=== PATIENT | female | born 1945 | race Caucasian/White ===

== ENCOUNTER 2017-01-04 12:54 | Inpatient (IN) | payer MEDICARE, OTHER ==
[2017-01-04] MEDS: Acetaminophen 325 MG Tab PO PRN (17:51)
[2017-01-04] MEDS ORDERED: Albuterol/Ipratropium 3.0-0.5 MG/3 ML Neb Soln NEB PRN (17:58)
[2017-01-04] MEDS ORDERED: Acetaminophen 325 MG Tab PO PRN (17:58)
[2017-01-04] MEDS ORDERED: Sodium Chloride 0.9% 5 ML Syringe FLUSH PRN (18:00)
[2017-01-04] MEDS: Omeprazole 20 MG Cap.CR PO SCH (19:55)
[2017-01-04] MEDS: Docusate Sodium 100 MG Cap PO SCH (20:05)
[2017-01-04] MEDS: Lactulose Soln 10 GM/15 ML 30 ML UD Cup PO SCH (20:05)
[2017-01-04] MEDS: Budesonide 0.5 MG/2 ML Neb Susp INH SCH (20:05)
[2017-01-04] MEDS: Ciprofloxacin 500 MG Tab PO SCH (20:06)
[2017-01-04] MEDS ORDERED: traMADol 50 MG Tab PO PRN (20:19)
[2017-01-04] MEDS: Albuterol/Ipratropium 3.0-0.5 MG/3 ML Neb Soln NEB SCH (21:22)
[2017-01-05] MEDS: Albuterol/Ipratropium 3.0-0.5 MG/3 ML Neb Soln NEB SCH ×4 (05:55→20:02)
[2017-01-05] MEDS: Metoclopramide 10 MG Tab PO PRN ×2 (06:21→11:59)
[2017-01-05] MEDS: Omeprazole 20 MG Cap.CR PO SCH ×2 (06:22→16:24)
[2017-01-05] MEDS: Budesonide 0.5 MG/2 ML Neb Susp INH SCH ×2 (07:30→19:51)
[2017-01-05] MEDS: Aspirin 81 MG Tab.EC PO SCH (08:13)
[2017-01-05] MEDS: Ferrous Sulfate 325 MG Tab PO SCH (08:13)
[2017-01-05] MEDS: Lactulose Soln 10 GM/15 ML 30 ML UD Cup PO SCH ×2 (08:13→20:16)
[2017-01-05] MEDS: Cholecalciferol (Vitamin D3) 1,000 Unit Tab PO SCH (08:14)
[2017-01-05] MEDS: Docusate Sodium 100 MG Cap PO SCH ×2 (08:14→20:17)
[2017-01-05] MEDS: Ciprofloxacin 500 MG Tab PO SCH ×2 (08:14→20:17)
[2017-01-05] MEDS: Furosemide 40 MG Tab PO SCH (08:14)
[2017-01-05] MEDS: Acetaminophen 325 MG Tab PO PRN ×2 (08:37→16:22)
[2017-01-05] MEDS: Amiodarone 200 MG Tab PO SCH (08:38)
[2017-01-05] MEDS: Potassium Chloride 20 MEQ Tab.ER PO SCH ×2 (08:38→08:55)
--- NOTE | 2017-01-05 17:12 | PN ---
01/05/2017 PATIENT NAME: LIZABETH RAMIREZ PATIENT PROFILE: The patient is a 71-year-old female patient, who is back to this hospital after almost an eight weeks stay at [facility]. She has developed initially influenza A followed by bilateral bacterial pneumonias. She had went into ARDS. She required tracheostomy and respiratory management for almost four weeks. She has come back to this hospital in very good condition. She is alert and well oriented to space, time, and person. She does have a gastrostomy tube in place. The tracheostomy is almost completely healed. She still has a loose cough. She has weakness of both lower extremities probably due to demyelination. OBJECTIVE: VITAL SIGNS: Her vital signs are as follows. Pulse is 76, oxygen saturations 91%, blood pressure is 128/60. Intake/output is good. HEAD: Negative. HEART: Stable. LUNGS: Stable. ABDOMEN: Soft. Gastrostomy tube is present. EXTREMITIES: Weak bilaterally. IMPRESSION: 1. History of influenza followed by bilateral bacterial pneumonitis. 2. Acute respiratory distress syndrome requiring placement of tracheostomy and prolonged respiratory management for approximately 4 to 6 weeks at [facility]. Currently, the patient is doing well as can be seen from above. PLAN: Plan is to continue current management. We will start her on gastrostomy tube feedings through the night from 6 p.m. to 8 a.m. She will get about 63 mL/h, 63 mL of Jevity 1.2. We will flush with 100 mL. She is also eating slowly. She has been getting trazodone and we will start her back on it at 50 mg at bedtime. /[id number]/MODL
[2017-01-05] MEDS: traZODone 50 MG Tab PO SCH (20:17)
[2017-01-06] MEDS: Albuterol/Ipratropium 3.0-0.5 MG/3 ML Neb Soln NEB SCH ×4 (06:22→20:04)
[2017-01-06] MEDS: Budesonide 0.5 MG/2 ML Neb Susp INH SCH ×2 (06:33→18:27)
[2017-01-06] MEDS: Omeprazole 20 MG Cap.CR PO SCH ×2 (06:34→17:30)
[2017-01-06] MEDS: Acetaminophen 325 MG Tab PO PRN (06:45)
[2017-01-06] MEDS: Metoclopramide 10 MG Tab PO PRN ×3 (08:19→21:24)
[2017-01-06] MEDS: Lactulose Soln 10 GM/15 ML 30 ML UD Cup PO SCH ×2 (08:29→20:17)
[2017-01-06] MEDS: Ferrous Sulfate 325 MG Tab PO SCH (08:30)
[2017-01-06] MEDS: Ciprofloxacin 500 MG Tab PO SCH ×2 (08:30→20:16)
[2017-01-06] MEDS: Docusate Sodium 100 MG Cap PO SCH ×2 (08:30→20:16)
[2017-01-06] MEDS: Furosemide 40 MG Tab PO SCH (08:31)
[2017-01-06] MEDS: Amiodarone 200 MG Tab PO SCH (08:31)
[2017-01-06] MEDS: Cholecalciferol (Vitamin D3) 1,000 Unit Tab PO SCH (08:31)
[2017-01-06] MEDS: Aspirin 81 MG Tab.EC PO SCH (08:31)
[2017-01-06] MEDS: Potassium Chloride 20 MEQ Tab.ER PO SCH (08:32)
--- NOTE | 2017-01-06 11:22 | PCM.PN ---
- General Info Date of Service: 01/06/17 Admission Dx/Problem (Free Text): Chief complaint: Weakness need for rehabilitation History of present illness: 71-year-old white female admitted to skilled care after a lengthy hospitalization in [place] for almost 8 weeks. Patient had initially developed influenza A. followed by bilateral bacterial pneumonias. Patient went into ARDS. Patient required tracheostomy, ventilation, respiratory management for almost 4 weeks. Patient presents now for swing bed skilled care admission for strength building, rehabilitation. Patient does have a chronic gastrostomy tube, tracheostomy is almost completely healed. Patient reported a loose cough on admission. Significant weakness of both lower extremities do to demyelination. Hospital discharge diagnosis: #1-Acute hypoxic respiratory failure due to empyema. #2-Acute on chronic diastolic heart failure #3-Atrial fibrillation #4-Anemia of chronic disease. Course while in the hospital: Acute hypoxic respiratory failure. Patient admitted to [facility] with influenza complicated by MRSA pneumonia, sepsis, right-sided empyema requiring intubation, mechanical ventilation-extended requiring even tracheostomy. PEG tube placement and enteral feedings Acute on chronic diastolic heart failure will-with some leg swelling, pulmonary edema-managed with Lasix Critical illness neuropathy and myopathy-aggressive PT and OT was done Constipation Component of urinary tract infection Urinary retention-thought probably from the decreased mobility Atrial fibrillation DVT prophylaxis Iron deficiency anemia Hypokalemia Nausea _ Patient reports today: Patient reports she still quite weak Decreased appetite Persistent recurrent nausea-especially associated with eating No major pain but some arthritis discomfort especially knees at times Shortness of breath much better overall Bladder doing fairly well-Gonzalez out Still getting tube feedings-tolerating fairly well Voiding well Bowel movement yesterday Nurses report today: Doing well overall Emesis after breakfast-nurses will try to give her Reglan earlier Crackles in her lung bases Some swelling in her lower extremities Needs SHLOMO hose PEG tube-tube feedings Functional Status: Reports: pain controlled, ambulating (With assistance-but can only take a few steps), urinating. Denies: tolerating diet (Fair diet control-a lot of nausea he yet) - Review of Systems General: Reports: Weakness, Fatigue, Malaise. Denies: Fever, Chills, Appetite ( Decreased) HEENT: Reports: no symptoms Pulmonary: Reports: shortness of breath (Much better overall), cough ( Occasional harsh). Denies: wheezing Cardiovascular: Reports: No Symptoms Gastrointestinal: Reports: No symptoms, Other (PEG tube) Genitourinary: Reports: no symptoms Musculoskeletal: Reports: joint pain (Knee pain at times) Neurological: Reports: No Symptoms, Weakness Psychiatric: Reports: no symptoms - Patient Data Vitals - most recent: Last Vital Signs Temp 97.9 F 01/06/17 06:36 Pulse 83 01/06/17 06:36 Resp 20 01/06/17 06:36 BP 140/66 01/06/17 06:36 Pulse Ox 97 01/06/17 06:36 Weight - most recent: 195 lb 7.989 oz I&O - last 24 hours: Intake & Output 01/05/17 01/06/17 01/06/17 22:59 06:59 14:59 Intake Total 250 910 Output Total 300 Balance -50 910 Med Orders - Current: Current Medications Acetaminophen (Tylenol) 650 mg PO Q4H PRN PRN Reason: Pain Last Admin: 01/06/17 06:45 Dose: 650 mg Albuterol/Ipratropium (Duoneb 3.0-0.5 Mg/3 Ml) 3 ml NEB Q4H PRN PRN Reason: Dyspnea Albuterol/Ipratropium (Duoneb 3.0-0.5 Mg/3 Ml) 3 ml NEB 0600,1100,1600,2000 [facility] Last Admin: 01/06/17 10:53 Dose: 3 ml Amiodarone HCl (Cordarone) 200 mg PO DAILY [facility] Last Admin: 01/06/17 08:31 Dose: 200 mg Aspirin (Halfprin) 81 mg PO DAILY [facility] Last Admin: 01/06/17 08:31 Dose: 81 mg Budesonide (Pulmicort) 0.5 mg INH BID@0700,1900 [facility] Last Admin: 01/06/17 06:33 Dose: 0.5 mg Cholecalciferol (Vitamin D3) 4,000 units PO DAILY [facility] Last Admin: 01/06/17 08:31 Dose: 4,000 units Ciprofloxacin (Ciprofloxacin Hcl) 500 mg PO BID [facility] Stop: 01/11/17 23:59 Last Admin: 01/06/17 08:30 Dose: 500 mg Docusate Sodium (Colace) 100 mg PO BID [facility] Last Admin: 01/06/17 08:30 Dose: 100 mg Ferrous Sulfate (Ferrous Sulfate) 325 mg PO WITHBREAKFAST [facility] Last Admin: 01/06/17 08:30 Dose: 325 mg Furosemide (Lasix) 40 mg PO DAILY [facility] Last Admin: 01/06/17 08:31 Dose: 40 mg Lactulose (Cephulac) 20 gm PO BID [facility] Last Admin: 01/06/17 08:29 Dose: Not Given Metoclopramide HCl (Reglan) 10 mg PO TID PRN PRN Reason: Nausea Last Admin: 01/06/17 08:19 Dose: 10 mg Omeprazole (Omeprazole) 20 mg PO BIDAC [facility] Last Admin: 01/06/17 06:34 Dose: 20 mg Potassium Chloride (Klor-Con M20) 20 meq PO DAILY [facility] Last Admin: 01/06/17 08:32 Dose: 20 meq Sodium Chloride (Syrex Flush) 5 ml FLUSH Q8HR PRN PRN Reason: Keep Vein Open Trazodone HCl (Trazodone) 50 mg PO BEDTIME [facility] Last Admin: 01/05/17 20:17 Dose: 50 mg Discontinued Medications Albuterol/Ipratropium (Duoneb 3.0-0.5 Mg/3 Ml) 3 ml NEB QIDRT [facility] Last Admin: 01/05/17 05:55 Dose: 3 ml Budesonide (Pulmicort) 0.5 mg INH BIDRT [facility] Last Admin: 01/05/17 07:30 Dose: 0.5 mg Tramadol HCl (Ultram) 100 mg PO DAILY PRN PRN Reason: Insomnia Last Admin: 01/04/17 21:21 Dose: 100 mg - Exam Quality Assessment: No: supplemental oxygen General: alert, oriented, cooperative, no acute distress, other (Sitting in chair, daughter present, alert and oriented x3, no acute respiratory cardiac distress, occasional deep harsh cough appreciated) HEENT: Pupils equal, Pupils reactive, EOMI, Mucous membr. moist/pink, Other ( Wears glasses). No: Scleral icterus Neck: supple, trachea midline, no JVD, no thyromegaly. No: lymphadenopathy Lungs: Decreased breath sounds, Crackles (Bases), Other (No O2 therapy on) Cardiovascular: Regular Rate, Regular Rhythm, No Murmurs Abdomen: bowel sounds present, soft, no tenderness, no distension, other (PEG tube-site looks good). No: rigidity, rebound, guarding, tenderness, distension Extremities: no calf tenderness, edema (1+/4+-patient reports it looks much better than previous) Skin: warm, dry, intact Neurological: no new focal deficit, other (Significant generalized weakness) Psy/Mental Status: alert, normal affect, normal mood - Problem List Review Problem List Initiated/Reviewed/Updated: Yes - Assessment Assessment:: #1-Generalized weakness and debilitation secondary to below-need for strength building and rehabilitation #2-Post acute hypoxic respiratory failure requiring extended mechanical ventilation-extubated and tracheostomy site healing nicely #3-Chronic hypoxia with secondary O2 therapy-doing much better-not requiring oxygen therapy at this time #4-Post severe pneumonia with empyema-still on Cipro-improving nicely #5-Recurrent yzxzyj-oowdntqcljvuyr-jcb optimal control yet #6-Chronic enteral feedings #7-Diastolic heart failure-clinically well controlled #0-Pluylkiybuip-ulhkgvrmyr #9-History of urinary tract infection #10-Atrial fibrillation history-clinically well controlled #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 #5-long discussion with patient and her daughter-they agree with this evaluation and treatment regimen
[2017-01-06] MEDS: traZODone 50 MG Tab PO SCH (20:16)
[2017-01-07] MEDS: Albuterol/Ipratropium 3.0-0.5 MG/3 ML Neb Soln NEB SCH ×4 (05:54→19:55)
[2017-01-07] MEDS: Budesonide 0.5 MG/2 ML Neb Susp INH SCH ×2 (06:05→18:57)
[2017-01-07] MEDS: Metoclopramide 10 MG Tab PO PRN ×2 (06:06→17:11)
[2017-01-07] MEDS: Acetaminophen 325 MG Tab PO PRN (06:06)
[2017-01-07] MEDS: Omeprazole 20 MG Cap.CR PO SCH ×2 (06:06→17:10)
[2017-01-07 07:41] LABS: CHLORIDE,CL 97 mmol/L (98-115); SODIUM,NA 135 mmol/L (136-145)
[2017-01-07] MEDS: Cholecalciferol (Vitamin D3) 1,000 Unit Tab PO SCH (08:57)
[2017-01-07] MEDS: Lactulose Soln 10 GM/15 ML 30 ML UD Cup PO SCH ×2 (08:57→20:08)
[2017-01-07] MEDS: Aspirin 81 MG Tab.EC PO SCH (08:58)
[2017-01-07] MEDS: Ciprofloxacin 500 MG Tab PO SCH ×2 (08:58→20:07)
[2017-01-07] MEDS: Docusate Sodium 100 MG Cap PO SCH ×2 (08:58→20:08)
[2017-01-07] MEDS: Furosemide 40 MG Tab PO SCH (08:58)
[2017-01-07] MEDS: Potassium Chloride 20 MEQ Tab.ER PO SCH (08:58)
[2017-01-07] MEDS: Amiodarone 200 MG Tab PO SCH (08:58)
[2017-01-07] MEDS: Ferrous Sulfate 325 MG Tab PO SCH (08:59)
[2017-01-07] MEDS: traZODone 50 MG Tab PO SCH (20:08)
[2017-01-08] MEDS: Albuterol/Ipratropium 3.0-0.5 MG/3 ML Neb Soln NEB SCH ×4 (06:05→20:14)
[2017-01-08] MEDS: Omeprazole 20 MG Cap.CR PO SCH ×2 (06:13→16:38)
[2017-01-08] MEDS: Acetaminophen 325 MG Tab PO PRN (06:13)
[2017-01-08] MEDS: Metoclopramide 10 MG Tab PO PRN (06:13)
[2017-01-08] MEDS: Budesonide 0.5 MG/2 ML Neb Susp INH SCH ×2 (06:24→18:55)
[2017-01-08] MEDS: Ferrous Sulfate 325 MG Tab PO SCH (08:46)
[2017-01-08] MEDS: Ciprofloxacin 500 MG Tab PO SCH ×2 (08:47→20:21)
[2017-01-08] MEDS: Lactulose Soln 10 GM/15 ML 30 ML UD Cup PO SCH ×2 (08:48→20:15)
[2017-01-08] MEDS: Docusate Sodium 100 MG Cap PO SCH ×2 (08:48→20:22)
[2017-01-08] MEDS: Amiodarone 200 MG Tab PO SCH (08:49)
[2017-01-08] MEDS: Aspirin 81 MG Tab.EC PO SCH (08:49)
[2017-01-08] MEDS: Potassium Chloride 20 MEQ Tab.ER PO SCH (08:50)
[2017-01-08] MEDS: Cholecalciferol (Vitamin D3) 1,000 Unit Tab PO SCH (08:50)
[2017-01-08] MEDS: Furosemide 40 MG Tab PO SCH (08:50)
[2017-01-08] MEDS: traZODone 50 MG Tab PO SCH (20:22)
[2017-01-09] MEDS: Albuterol/Ipratropium 3.0-0.5 MG/3 ML Neb Soln NEB SCH ×4 (05:13→19:19)
[2017-01-09] MEDS: Metoclopramide 10 MG Tab PO PRN (06:10)
[2017-01-09] MEDS: Omeprazole 20 MG Cap.CR PO SCH ×2 (06:10→16:55)
[2017-01-09] MEDS: Budesonide 0.5 MG/2 ML Neb Susp INH SCH ×2 (07:12→18:48)
[2017-01-09] MEDS: Acetaminophen 325 MG Tab PO PRN ×2 (08:03→23:57)
[2017-01-09] MEDS: Lactulose Soln 10 GM/15 ML 30 ML UD Cup PO SCH ×2 (09:02→20:18)
[2017-01-09] MEDS: Ferrous Sulfate 325 MG Tab PO SCH (09:02)
[2017-01-09] MEDS: Docusate Sodium 100 MG Cap PO SCH ×2 (09:04→20:20)
[2017-01-09] MEDS: Ciprofloxacin 500 MG Tab PO SCH ×2 (09:04→20:19)
[2017-01-09] MEDS: Aspirin 81 MG Tab.EC PO SCH (09:06)
[2017-01-09] MEDS: Amiodarone 200 MG Tab PO SCH (09:06)
[2017-01-09] MEDS: Potassium Chloride 20 MEQ Tab.ER PO SCH (09:07)
[2017-01-09] MEDS: Furosemide 40 MG Tab PO SCH (09:07)
[2017-01-09] MEDS: Cholecalciferol (Vitamin D3) 1,000 Unit Tab PO SCH (09:08)
[2017-01-09] MEDS: traZODone 50 MG Tab PO SCH (20:20)
[2017-01-10] MEDS: Metoclopramide 10 MG Tab PO PRN (06:21)
[2017-01-10] MEDS: Omeprazole 20 MG Cap.CR PO SCH ×2 (06:22→17:12)
[2017-01-10] MEDS: Albuterol/Ipratropium 3.0-0.5 MG/3 ML Neb Soln NEB SCH ×4 (06:25→21:06)
[2017-01-10] MEDS: Budesonide 0.5 MG/2 ML Neb Susp INH SCH ×2 (06:31→20:11)
[2017-01-10] MEDS: Lactulose Soln 10 GM/15 ML 30 ML UD Cup PO SCH (09:29)
[2017-01-10] MEDS: Ferrous Sulfate 325 MG Tab PO SCH (09:30)
[2017-01-10] MEDS: Ciprofloxacin 500 MG Tab PO SCH ×2 (09:31→21:06)
[2017-01-10] MEDS: Cholecalciferol (Vitamin D3) 1,000 Unit Tab PO SCH (09:31)
[2017-01-10] MEDS: Furosemide 40 MG Tab PO SCH (09:31)
[2017-01-10] MEDS: Aspirin 81 MG Tab.EC PO SCH (09:31)
[2017-01-10] MEDS: Potassium Chloride 20 MEQ Tab.ER PO SCH (09:31)
[2017-01-10] MEDS: Docusate Sodium 100 MG Cap PO SCH ×2 (09:32→21:06)
[2017-01-10] MEDS: Amiodarone 200 MG Tab PO SCH (09:32)
[2017-01-10] MEDS: Acetaminophen 325 MG Tab PO PRN ×2 (09:32→21:06)
--- NOTE | 2017-01-10 11:10 | PCM.PN ---
- General Info Date of Service: 01/10/17 Functional Status: Denies: tolerating diet (And nausea, abd distention, ) - Review of Systems General: Denies: Fever, Appetite Pulmonary: Reports: no symptoms Cardiovascular: Reports: Edema Gastrointestinal: Reports: Decreased appetite, Nausea. Denies: Abdominal pain, Diarrhea (Does have loose stools), Difficulty swallowing, Vomiting - Patient Data Vitals - most recent: Last Vital Signs Temp 98.1 F 01/10/17 06:37 Pulse 80 01/10/17 10:15 Resp 20 01/10/17 06:37 BP 144/67 H 01/10/17 06:37 Pulse Ox 95 01/10/17 10:15 Weight - most recent: 195 lb 7.989 oz I&O - last 24 hours: Intake & Output 01/09/17 01/10/17 01/10/17 22:59 06:59 14:59 Intake Total 420 1030 Output Total 500 800 Balance -80 230 Med Orders - Current: Current Medications Acetaminophen (Tylenol) 650 mg PO Q4H PRN PRN Reason: Pain Last Admin: 01/10/17 09:32 Dose: 650 mg Albuterol/Ipratropium (Duoneb 3.0-0.5 Mg/3 Ml) 3 ml NEB Q4H PRN PRN Reason: Dyspnea Albuterol/Ipratropium (Duoneb 3.0-0.5 Mg/3 Ml) 3 ml NEB 0600,1100,1600,2000 [facility] Last Admin: 01/10/17 10:15 Dose: 3 ml Amiodarone HCl (Cordarone) 200 mg PO DAILY [facility] Last Admin: 01/10/17 09:32 Dose: 200 mg Aspirin (Halfprin) 81 mg PO DAILY [facility] Last Admin: 01/10/17 09:31 Dose: 81 mg Budesonide (Pulmicort) 0.5 mg INH BID@0700,1900 [facility] Last Admin: 01/10/17 06:31 Dose: 0.5 mg Cholecalciferol (Vitamin D3) 4,000 units PO DAILY [facility] Last Admin: 01/10/17 09:31 Dose: 4,000 units Ciprofloxacin (Ciprofloxacin Hcl) 500 mg PO BID [facility] Stop: 01/11/17 23:59 Last Admin: 01/10/17 09:31 Dose: 500 mg Docusate Sodium (Colace) 100 mg PO BID [facility] Last Admin: 01/10/17 09:32 Dose: 100 mg Ferrous Sulfate (Ferrous Sulfate) 325 mg PO WITHBREAKFAST [facility] Last Admin: 01/10/17 09:30 Dose: 325 mg Furosemide (Lasix) 40 mg PO DAILY [facility] Last Admin: 01/10/17 09:31 Dose: 40 mg Lactulose (Cephulac) 20 gm PO BID [facility] Last Admin: 01/10/17 09:29 Dose: 20 gm Metoclopramide HCl (Reglan) 10 mg PO TID PRN PRN Reason: Nausea Last Admin: 01/10/17 06:21 Dose: 10 mg Omeprazole (Omeprazole) 20 mg PO BIDAC [facility] Last Admin: 01/10/17 06:22 Dose: 20 mg Potassium Chloride (Klor-Con M20) 20 meq PO DAILY [facility] Last Admin: 01/10/17 09:31 Dose: 20 meq Sodium Chloride (Syrex Flush) 5 ml FLUSH Q8HR PRN PRN Reason: Keep Vein Open Trazodone HCl (Trazodone) 50 mg PO BEDTIME [facility] Last Admin: 01/09/17 20:20 Dose: 50 mg Discontinued Medications Albuterol/Ipratropium (Duoneb 3.0-0.5 Mg/3 Ml) 3 ml NEB QIDRT [facility] Last Admin: 01/05/17 05:55 Dose: 3 ml Budesonide (Pulmicort) 0.5 mg INH BIDRT [facility] Last Admin: 01/05/17 07:30 Dose: 0.5 mg Tramadol HCl (Ultram) 100 mg PO DAILY PRN PRN Reason: Insomnia Last Admin: 01/04/17 21:21 Dose: 100 mg - Exam Quality Assessment: supplemental oxygen General: alert, oriented, mild distress Neck: supple Lungs: Clear to auscultation, Normal respiratory effort Cardiovascular: Regular Rate, Regular Rhythm Abdomen: distension Extremities: edema Psy/Mental Status: alert, anxious - Problem List Review Problem List Initiated/Reviewed/Updated: Yes - My Orders Last 24 Hours: My Active Orders 01/10/17 07:15 IRON PANEL IRON/TRANSFERR/FERR [REF] Routine 01/10/17 09:00 Communication Order [RC] DAILY - Plan Plan:: Brief history; This is a 71-year-old female came to us from a LT Center in [place] after being sent to [facility] from [place] initially. She was at [facility] for an extended period of time do influenza A complicated by MRSA , pneumonia with right-sided empyema severe shortness of breath and respiratory failure requiring mechanical ventilation. She underwent VATS decortication during her hospital stay in [place] and in surgery pulmonogly noted a large amount of material in her middle and lower lobes. While Christelle was at [place] hospitalization she failed extubation and had to be reintubated--had a trach at one time with an ongoing PEG for nutritional support. 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 Due to her extended acute care stay at [facility] she did become profoundly deconditioned and weak and was sent here to [place] for physical therapy and rehabilitation. The patient is a 71-year-old lady with a history of influenza and subsequent pneumonia who developed a right empyema with severe shortness of breath and respiratory failure requiring mechanical ventilation. She was brought to the operating room with mechanical ventilation ongoing and underwent the above procedure. Chest CT without contrast 11/20/2016: Large right and moderate left pleural effusions which appear loculated bilaterally. Multisegmental collapse of the lower lobes, diffuse parenchymal airspace densities throughout the lungs with numerous suspected pneumatoceles potentially infectious in etiology. 2. Partially peripherally calcified hypoattenuating lesion along the right lower lung may arise from the adjacent lung parenchyma. Attention to this region on follow-up for further characterization with contrast enhanced examination. 3. Anasarca. CODE STATUS; full code IMPRESSION/PLAN Gastricparesis; will slowly taper off her tube feedings. Decrease her tube volume feedings. She is starting to take adequate orals, calorie count. Hold off on lactulose. Zofran ODT when necessary. Generalized weakness; continue with physical therapy and rehabilitation. Appears to be doing quite well. Post acute hypoxic respiratory failure requiring extended mechanical ventilation -extubated and tracheostomy site healing nicely History of large right and moderate left pleural effusions, noted on his chest CT 11/20/2016, Will consider follow-up CT to assess fo rtemporal changes since she has been clinically treated with appropriate antibiotics. However clinically she is improving. there has been a referral made to pulmonology from [facility] however pulmonology clinic [facility] was wanting repeat chest CT prior to appointment. Status post right thoracoscopy, decortication right middle lobe and right lower lobe, drainage of empyema, and placement of chest tubes x2, subsequently removed. Chronic hypoxia with secondary O2 therapy, improvement however with increased abdominal girth duo to ongoing tube feedings will decrease her tube feeding to 50 cc per hour through the night. Status post pneumonia with empyema-with UTI, will finish Cipro on tomorrow. Diastolic heart failure-clinically well controlled, so edema. Lasix and potassium ongoing. Monitor BUN creatinine Urinary tract infection, completed course of Cipro--clinically doing much better. Atrial fibrillation history-clinically well controlled Anemia, normocytic, normochromic, with slight cell-size variation improving but increased RDW--so most likely anisocytosis; Low TIBC and circulating iron low at 18 despite supplementation, reviewed labs in [facility] several weeks ago and she did have ferritin level at 500 which would over compensate for any acute /inflammatory phase reaction however here at [place] ferritin level is 133-- likely not enough to compensate for any acute phase reaction. Appears to have adequate folate and vitamin B12. Since ferritin level is highly sensitive and highly specific for iron deficiency anemia this is most likely her diagnosis. Assess for reticulocytosis meantime increase her iron 325 from daily to 3 times a day. We'll see how she tolerates this. If she cannot tolerate it we'll give iron IV--monitor for constipation
[2017-01-10] MEDS ORDERED: Ondansetron 4 MG/2 ML SDV IVPUSH PRN (11:56)
[2017-01-10] MEDS: traZODone 50 MG Tab PO SCH (21:06)
[2017-01-11] MEDS: Omeprazole 20 MG Cap.CR PO SCH ×2 (06:07→16:44)
[2017-01-11] MEDS: Albuterol/Ipratropium 3.0-0.5 MG/3 ML Neb Soln NEB SCH ×4 (06:12→19:52)
[2017-01-11] MEDS: Budesonide 0.5 MG/2 ML Neb Susp INH SCH ×2 (06:21→19:57)
[2017-01-11 07:39] LABS: CHLORIDE,CL 95 mmol/L (98-115); SODIUM,NA 142 mmol/L (136-145)
[2017-01-11] MEDS: Ondansetron 4 MG Tab.DIS PO PRN (09:17)
[2017-01-11] MEDS: Acetaminophen 325 MG Tab PO PRN ×2 (09:28→15:35)
[2017-01-11] MEDS: Ferrous Sulfate 325 MG Tab PO SCH (09:31)
[2017-01-11] MEDS: Ciprofloxacin 500 MG Tab PO SCH ×2 (10:25→20:11)
[2017-01-11] MEDS: Furosemide 40 MG Tab PO SCH (10:26)
[2017-01-11] MEDS: Amiodarone 200 MG Tab PO SCH (11:36)
[2017-01-11] MEDS: Docusate Sodium 100 MG Cap PO SCH ×2 (11:37→20:11)
[2017-01-11] MEDS: Potassium Chloride 20 MEQ Tab.ER PO SCH (12:24)
[2017-01-11] MEDS: Cholecalciferol (Vitamin D3) 1,000 Unit Tab PO SCH ×2 (13:58→17:00)
[2017-01-11] MEDS ORDERED: Fluconazole 100 MG Tab PO ONE (18:00)
[2017-01-11] MEDS: Zinc Oxide/Eucerin/Nystatin/Karaya 237 ML JAR TOP SCH (21:28)
[2017-01-11] MEDS: traZODone 50 MG Tab PO SCH (21:28)
[2017-01-12] MEDS: Albuterol/Ipratropium 3.0-0.5 MG/3 ML Neb Soln NEB SCH ×4 (06:37→19:42)
[2017-01-12] MEDS: Omeprazole 20 MG Cap.CR PO SCH ×2 (06:46→17:17)
[2017-01-12] MEDS: Budesonide 0.5 MG/2 ML Neb Susp INH SCH ×2 (06:55→19:29)
[2017-01-12] MEDS: Acetaminophen 325 MG Tab PO PRN ×3 (07:59→21:10)
[2017-01-12] MEDS: Zinc Oxide/Eucerin/Nystatin/Karaya 237 ML JAR TOP SCH ×2 (08:20→21:08)
[2017-01-12] MEDS: Ondansetron 4 MG Tab.DIS PO PRN (08:32)
[2017-01-12] MEDS: Lactulose Soln 10 GM/15 ML 30 ML UD Cup PO PRN (09:00)
[2017-01-12] MEDS: Furosemide 40 MG Tab PO SCH (09:01)
[2017-01-12] MEDS: Amiodarone 200 MG Tab PO SCH (09:02)
[2017-01-12] MEDS: Potassium Chloride 20 MEQ Tab.ER PO SCH (12:17)
[2017-01-12] MEDS: Docusate Sodium 100 MG Cap PO SCH ×2 (12:18→21:10)
[2017-01-12] MEDS: Ferrous Sulfate 325 MG Tab PO SCH ×2 (12:19→17:18)
[2017-01-12] MEDS: Fluconazole 100 MG Tab PO SCH (17:17)
[2017-01-12] MEDS: Cholecalciferol (Vitamin D3) 1,000 Unit Tab PO SCH (17:18)
[2017-01-12] MEDS ORDERED: Ferrous Sulfate 325 MG Tab PO SCH (18:00)
[2017-01-12] MEDS: traZODone 50 MG Tab PO SCH (21:10)
[2017-01-13] MEDS: Acetaminophen 325 MG Tab PO PRN ×3 (00:55→21:36)
[2017-01-13] MEDS: Omeprazole 20 MG Cap.CR PO SCH ×2 (06:25→16:53)
[2017-01-13] MEDS: Budesonide 0.5 MG/2 ML Neb Susp INH SCH ×2 (06:26→19:31)
[2017-01-13] MEDS: Albuterol/Ipratropium 3.0-0.5 MG/3 ML Neb Soln NEB SCH ×4 (06:36→19:39)
[2017-01-13] MEDS: Lactulose Soln 10 GM/15 ML 30 ML UD Cup PO PRN (08:28)
[2017-01-13] MEDS: Ondansetron 4 MG Tab.DIS PO PRN (08:28)
[2017-01-13] MEDS: Ferrous Sulfate 325 MG Tab PO SCH ×3 (08:29→17:29)
[2017-01-13] MEDS: Furosemide 40 MG Tab PO SCH (08:30)
[2017-01-13] MEDS: Amiodarone 200 MG Tab PO SCH (08:30)
[2017-01-13] MEDS: Zinc Oxide/Eucerin/Nystatin/Karaya 237 ML JAR TOP SCH ×2 (08:30→21:35)
[2017-01-13] MEDS: Docusate Sodium 100 MG Cap PO SCH ×2 (11:19→21:35)
[2017-01-13] MEDS: Potassium Chloride 20 MEQ Tab.ER PO SCH (11:19)
[2017-01-13] MEDS: Fluconazole 100 MG Tab PO SCH (17:28)
[2017-01-13] MEDS: Cholecalciferol (Vitamin D3) 1,000 Unit Tab PO SCH (17:29)
[2017-01-13] MEDS: traZODone 50 MG Tab PO SCH (21:35)
[2017-01-14] MEDS: Omeprazole 20 MG Cap.CR PO SCH ×2 (06:26→16:24)
[2017-01-14] MEDS: Albuterol/Ipratropium 3.0-0.5 MG/3 ML Neb Soln NEB SCH ×4 (06:26→21:24)
[2017-01-14] MEDS: Budesonide 0.5 MG/2 ML Neb Susp INH SCH ×2 (06:52→21:24)
[2017-01-14] MEDS: Acetaminophen 325 MG Tab PO PRN ×2 (08:46→13:30)
[2017-01-14] MEDS: Ondansetron 4 MG Tab.DIS PO PRN (08:47)
[2017-01-14] MEDS: Ferrous Sulfate 325 MG Tab PO SCH ×3 (08:48→17:31)
[2017-01-14] MEDS: Furosemide 40 MG Tab PO SCH (08:48)
[2017-01-14] MEDS: Amiodarone 200 MG Tab PO SCH (08:48)
[2017-01-14] MEDS: Zinc Oxide/Eucerin/Nystatin/Karaya 237 ML JAR TOP SCH ×2 (08:49→21:25)
[2017-01-14] MEDS: Docusate Sodium 100 MG Cap PO SCH ×2 (11:11→21:24)
[2017-01-14] MEDS: Potassium Chloride 20 MEQ Tab.ER PO SCH (11:11)
[2017-01-14] MEDS: Cholecalciferol (Vitamin D3) 1,000 Unit Tab PO SCH (17:31)
[2017-01-14] MEDS: traZODone 50 MG Tab PO SCH (21:24)
[2017-01-14] MEDS: diphenhydrAMINE 25 MG Cap PO PRN (23:48)
[2017-01-15] MEDS: Omeprazole 20 MG Cap.CR PO SCH ×2 (06:14→18:07)
[2017-01-15] MEDS: Albuterol/Ipratropium 3.0-0.5 MG/3 ML Neb Soln NEB SCH ×4 (06:28→19:34)
[2017-01-15] MEDS: Budesonide 0.5 MG/2 ML Neb Susp INH SCH ×2 (06:45→19:36)
[2017-01-15] MEDS: Ondansetron 4 MG Tab.DIS PO PRN ×2 (08:12→14:14)
[2017-01-15] MEDS: Zinc Oxide/Eucerin/Nystatin/Karaya 237 ML JAR TOP SCH ×2 (08:22→20:41)
[2017-01-15] MEDS: Acetaminophen 325 MG Tab PO PRN ×2 (08:23→12:55)
[2017-01-15] MEDS: Ferrous Sulfate 325 MG Tab PO SCH ×3 (08:56→18:07)
[2017-01-15] MEDS: Amiodarone 200 MG Tab PO SCH (08:56)
[2017-01-15] MEDS: Furosemide 40 MG Tab PO SCH (08:56)
[2017-01-15] MEDS: Docusate Sodium 100 MG Cap PO SCH ×2 (12:05→20:41)
[2017-01-15] MEDS: Potassium Chloride 20 MEQ Tab.ER PO SCH (12:05)
[2017-01-15] MEDS: Cholecalciferol (Vitamin D3) 1,000 Unit Tab PO SCH (18:07)
[2017-01-15] MEDS: traZODone 50 MG Tab PO SCH (20:41)
[2017-01-16] MEDS: Budesonide 0.5 MG/2 ML Neb Susp INH SCH ×2 (07:17→19:56)
[2017-01-16] MEDS: Albuterol/Ipratropium 3.0-0.5 MG/3 ML Neb Soln NEB SCH ×4 (07:17→19:56)
[2017-01-16] MEDS: Omeprazole 20 MG Cap.CR PO SCH ×2 (07:18→17:25)
[2017-01-16] MEDS: Ondansetron 4 MG Tab.DIS PO PRN (07:52)
[2017-01-16] MEDS: Amiodarone 200 MG Tab PO SCH (08:54)
[2017-01-16] MEDS: Ferrous Sulfate 325 MG Tab PO SCH ×3 (08:54→18:22)
[2017-01-16] MEDS: Aspirin 81 MG Tab.EC PO SCH (08:54)
[2017-01-16] MEDS: Furosemide 40 MG Tab PO SCH (08:55)
[2017-01-16] MEDS: Acetaminophen 325 MG Tab PO PRN ×2 (09:57→15:15)
[2017-01-16] MEDS: Zinc Oxide/Eucerin/Nystatin/Karaya 237 ML JAR TOP SCH ×2 (10:34→21:02)
--- NOTE | 2017-01-16 11:34 | PN ---
01/15/2017 PATIENT NAME: LIZABETH RAMIREZ SUBJECTIVE: This is a 71-year-old female patient who had spent an extended time in the hospital in [facility]. She originally was in [facility], then she got transferred to [place] with multiple health issues. She has been admitted to the [facility] here for swing bed status. The patient states that she does not want Jevity feedings anymore. She says last night she had an episode where she had some hives. They gave her some Benadryl and she did improve. She feels full from Jevity plus she thinks it is causing the hives. She wonders we can just discontinue it. She states her appetite has been good. She thinks she has been eating enough. She has no other real health concerns. OBJECTIVE: VITAL SIGNS: Temperature is 97.9, pulse is 73, blood pressure is 128/58, respiratory rate 14, oxygen saturations are 92% on room air. GENERAL: This is an elderly white female, in no acute distress. LUNGS: Sounds are clear in upper lobes, diminished at bilateral bases. ABDOMEN: Soft, nontender, and nondistended. Bowel sounds present x4. G-tube is in place. HEART: Tones are regular rate and rhythm. No murmurs identified. LABORATORY DATA: The patient did not have any lab work drawn today. IMPRESSION AND PLAN: 1. Problems with gastroparesis secondary to multiple health problems. Plan: We are going to stop the patient's Jevity feedings at this time. We will do calorie counts and see how much she is eating. We will do free water flushes 150 mL twice daily to her G tube to keep patency of this tube. 2. Generalized weakness. Plan: Continue with Physical Therapy for strengthening and conditioning. She seems to be improving. 3. Respiratory status with pleural effusions. The patient had mechanical ventilator for extended period of time. She had pneumonia with empyema. She seems to be doing really well at this time. She is on room air at 92%. We will continue with Pulmicort nebulizers twice a day along with DuoNeb 4 times a day with pulmonary toileting and incentive spirometer. 4. Congestive heart failure. Plan: Continue with Lasix 40 mg daily along with potassium supplements 20 mEq daily. 5. History of atrial fibrillation. Plan: The patient is rate controlled at 73 beats per minute. We will continue with amiodarone 200 mg daily along with aspirin 81 mg daily. 6. Anemia. Plan: The patient's last hemoglobin is stable at 9.1. We will continue with ferrous sulfate 325 mg daily. 7. Gastroesophageal reflux disease. Plan: Continue with omeprazole 20 mg twice daily. 8. Insomnia. Plan: Continue with trazodone 50 mg at bedtime as needed for sleep. /[id number]/MODL MTDD
[2017-01-16] MEDS: Potassium Chloride 20 MEQ Tab.ER PO SCH (12:10)
[2017-01-16] MEDS: Docusate Sodium 100 MG Cap PO SCH ×2 (12:10→21:02)
[2017-01-16] MEDS: Cholecalciferol (Vitamin D3) 1,000 Unit Tab PO SCH (18:22)
[2017-01-16] MEDS ORDERED: traMADol 50 MG Tab PO PRN (18:51)
[2017-01-16] MEDS ORDERED: traMADol 50 MG Tab PO ONE (18:55)
[2017-01-16] MEDS: traZODone 50 MG Tab PO SCH (21:02)
[2017-01-17] MEDS: Omeprazole 20 MG Cap.CR PO SCH ×2 (06:34→17:11)
[2017-01-17] MEDS: Albuterol/Ipratropium 3.0-0.5 MG/3 ML Neb Soln NEB SCH ×4 (06:41→20:11)
[2017-01-17] MEDS: Budesonide 0.5 MG/2 ML Neb Susp INH SCH ×2 (06:53→20:11)
[2017-01-17] MEDS ORDERED: traMADol 50 MG Tab PO PRN (08:11)
[2017-01-17] MEDS: Ondansetron 4 MG Tab.DIS PO PRN (08:32)
[2017-01-17] MEDS: Ferrous Sulfate 325 MG Tab PO SCH ×3 (09:10→18:02)
[2017-01-17] MEDS: Acetaminophen 325 MG Tab PO PRN ×2 (09:11→18:01)
[2017-01-17] MEDS: Furosemide 40 MG Tab PO SCH (09:11)
[2017-01-17] MEDS: Amiodarone 200 MG Tab PO SCH (09:12)
[2017-01-17] MEDS: Aspirin 81 MG Tab.EC PO SCH (09:12)
[2017-01-17] MEDS: Docusate Sodium 100 MG Cap PO SCH ×2 (12:08→20:43)
[2017-01-17] MEDS: Potassium Chloride 20 MEQ Tab.ER PO SCH (12:08)
[2017-01-17] MEDS: Zinc Oxide/Eucerin/Nystatin/Karaya 237 ML JAR TOP SCH ×2 (12:10→20:44)
[2017-01-17] MEDS: Cholecalciferol (Vitamin D3) 1,000 Unit Tab PO SCH (18:02)
[2017-01-17] MEDS: traZODone 50 MG Tab PO SCH (20:44)
[2017-01-18] MEDS: Omeprazole 20 MG Cap.CR PO SCH ×2 (06:26→17:49)
[2017-01-18] MEDS: Albuterol/Ipratropium 3.0-0.5 MG/3 ML Neb Soln NEB SCH ×4 (06:42→19:55)
[2017-01-18] MEDS: Budesonide 0.5 MG/2 ML Neb Susp INH SCH ×2 (07:00→20:13)
[2017-01-18] MEDS: Ondansetron 4 MG Tab.DIS PO PRN (08:35)
[2017-01-18] MEDS: Ferrous Sulfate 325 MG Tab PO SCH ×3 (09:00→17:49)
[2017-01-18] MEDS: Aspirin 81 MG Tab.EC PO SCH (09:01)
[2017-01-18] MEDS: Amiodarone 200 MG Tab PO SCH (09:01)
[2017-01-18] MEDS: Zinc Oxide/Eucerin/Nystatin/Karaya 237 ML JAR TOP SCH ×2 (09:02→21:17)
[2017-01-18] MEDS: Furosemide 40 MG Tab PO SCH (09:05)
[2017-01-18] MEDS: Acetaminophen 325 MG Tab PO PRN (09:31)
[2017-01-18] MEDS: Docusate Sodium 100 MG Cap PO SCH ×2 (12:13→21:15)
[2017-01-18] MEDS: Potassium Chloride 20 MEQ Tab.ER PO SCH (12:15)
[2017-01-18] MEDS: methylPREDNISolone Sodium Succinate 125 MG/2 ML SDV IVPUSH SCH ×2 (13:15→21:08)
[2017-01-18] MEDS: Cholecalciferol (Vitamin D3) 1,000 Unit Tab PO SCH (17:50)
[2017-01-18] MEDS: traZODone 50 MG Tab PO SCH (21:15)
[2017-01-19] MEDS: Omeprazole 20 MG Cap.CR PO SCH ×2 (06:30→17:29)
[2017-01-19] MEDS: Albuterol/Ipratropium 3.0-0.5 MG/3 ML Neb Soln NEB SCH ×4 (06:31→20:01)
[2017-01-19] MEDS: Budesonide 0.5 MG/2 ML Neb Susp INH SCH ×2 (06:40→18:54)
[2017-01-19] MEDS: Ondansetron 4 MG Tab.DIS PO PRN (07:21)
[2017-01-19] MEDS: Ferrous Sulfate 325 MG Tab PO SCH ×3 (08:39→17:29)
[2017-01-19] MEDS: Furosemide 40 MG Tab PO SCH (09:30)
[2017-01-19] MEDS: Aspirin 81 MG Tab.EC PO SCH (09:30)
[2017-01-19] MEDS: Amiodarone 200 MG Tab PO SCH (09:30)
[2017-01-19] MEDS: Zinc Oxide/Eucerin/Nystatin/Karaya 237 ML JAR TOP SCH ×2 (09:34→20:03)
[2017-01-19] MEDS: Acetaminophen 325 MG Tab PO PRN ×2 (09:37→21:10)
[2017-01-19] MEDS: methylPREDNISolone Sodium Succinate 125 MG/2 ML SDV IVPUSH SCH ×2 (09:57→10:05)
[2017-01-19] MEDS: Docusate Sodium 100 MG Cap PO SCH ×2 (12:17→20:01)
[2017-01-19] MEDS: Potassium Chloride 20 MEQ Tab.ER PO SCH (12:18)
[2017-01-19] MEDS: Cholecalciferol (Vitamin D3) 1,000 Unit Tab PO SCH (17:30)
[2017-01-19] MEDS: Lactulose Soln 10 GM/15 ML 30 ML UD Cup PO PRN (18:54)
[2017-01-19] MEDS: traZODone 50 MG Tab PO SCH (20:01)
[2017-01-20] MEDS: diphenhydrAMINE 25 MG Cap PO PRN (01:12)
[2017-01-20] MEDS: Omeprazole 20 MG Cap.CR PO SCH ×2 (06:11→17:03)
[2017-01-20] MEDS: Albuterol/Ipratropium 3.0-0.5 MG/3 ML Neb Soln NEB SCH ×4 (06:12→20:36)
[2017-01-20] MEDS: Budesonide 0.5 MG/2 ML Neb Susp INH SCH ×2 (06:51→20:45)
[2017-01-20] MEDS: Ondansetron 4 MG Tab.DIS PO PRN (07:32)
[2017-01-20] MEDS: Amiodarone 200 MG Tab PO SCH (08:49)
[2017-01-20] MEDS: Aspirin 81 MG Tab.EC PO SCH (08:49)
[2017-01-20] MEDS: Ferrous Sulfate 325 MG Tab PO SCH ×3 (08:49→17:05)
[2017-01-20] MEDS: Furosemide 40 MG Tab PO SCH (08:50)
[2017-01-20] MEDS: Zinc Oxide/Eucerin/Nystatin/Karaya 237 ML JAR TOP SCH ×2 (08:50→20:53)
[2017-01-20] MEDS: methylPREDNISolone Sodium Succinate 125 MG/2 ML SDV IVPUSH SCH (08:53)
[2017-01-20] MEDS: Docusate Sodium 100 MG Cap PO SCH ×2 (12:03→20:53)
[2017-01-20] MEDS: Potassium Chloride 20 MEQ Tab.ER PO SCH (12:04)
[2017-01-20] MEDS: Cholecalciferol (Vitamin D3) 1,000 Unit Tab PO SCH (17:03)
[2017-01-20] MEDS: Lactulose Soln 10 GM/15 ML 30 ML UD Cup PO PRN (20:53)
[2017-01-20] MEDS: traZODone 50 MG Tab PO SCH (22:51)
[2017-01-21] MEDS: traZODone 50 MG Tab PO SCH (01:40)
[2017-01-21] MEDS: Omeprazole 20 MG Cap.CR PO SCH ×2 (06:25→17:07)
[2017-01-21] MEDS: Albuterol/Ipratropium 3.0-0.5 MG/3 ML Neb Soln NEB SCH ×4 (06:26→19:59)
[2017-01-21] MEDS: Budesonide 0.5 MG/2 ML Neb Susp INH SCH ×2 (06:42→18:40)
[2017-01-21] MEDS: Ondansetron 4 MG Tab.DIS PO PRN (08:14)
[2017-01-21] MEDS ORDERED: Bisacodyl 10 MG Supp RECTAL PRN (08:15)
[2017-01-21] MEDS: methylPREDNISolone Sodium Succinate 125 MG/2 ML SDV IVPUSH SCH (08:46)
[2017-01-21] MEDS: Ferrous Sulfate 325 MG Tab PO SCH (10:17)
[2017-01-21] MEDS: Amiodarone 200 MG Tab PO SCH (10:17)
[2017-01-21] MEDS: Aspirin 81 MG Tab.EC PO SCH (10:17)
[2017-01-21] MEDS: Furosemide 40 MG Tab PO SCH (10:18)
[2017-01-21] MEDS: Zinc Oxide/Eucerin/Nystatin/Karaya 237 ML JAR TOP SCH ×2 (10:18→19:59)
[2017-01-21] MEDS: Potassium Chloride 20 MEQ Tab.ER PO SCH (13:20)
[2017-01-21] MEDS: Docusate Sodium 100 MG Cap PO SCH ×2 (13:20→19:59)
[2017-01-21] MEDS: Cholecalciferol (Vitamin D3) 1,000 Unit Tab PO SCH (18:32)
[2017-01-22] MEDS: traZODone 50 MG Tab PO SCH ×2 (01:02→21:09)
[2017-01-22] MEDS: Omeprazole 20 MG Cap.CR PO SCH ×2 (06:20→17:07)
[2017-01-22] MEDS: Albuterol/Ipratropium 3.0-0.5 MG/3 ML Neb Soln NEB SCH ×4 (06:27→19:40)
[2017-01-22] MEDS: Budesonide 0.5 MG/2 ML Neb Susp INH SCH ×2 (06:50→19:39)
[2017-01-22] MEDS: Ondansetron 4 MG Tab.DIS PO PRN (07:24)
[2017-01-22] MEDS: methylPREDNISolone Sodium Succinate 125 MG/2 ML SDV IVPUSH SCH (08:31)
[2017-01-22] MEDS: Amiodarone 200 MG Tab PO SCH (08:42)
[2017-01-22] MEDS: Furosemide 40 MG Tab PO SCH (08:42)
[2017-01-22] MEDS: Aspirin 81 MG Tab.EC PO SCH (08:42)
[2017-01-22] MEDS: Ferrous Sulfate 325 MG Tab PO SCH (08:42)
[2017-01-22] MEDS: Potassium Chloride 20 MEQ Tab.ER PO SCH (12:01)
[2017-01-22] MEDS: Docusate Sodium 100 MG Cap PO SCH ×2 (12:01→21:08)
[2017-01-22] MEDS: Zinc Oxide/Eucerin/Nystatin/Karaya 237 ML JAR TOP SCH ×2 (13:50→21:07)
[2017-01-22] MEDS: Cholecalciferol (Vitamin D3) 1,000 Unit Tab PO SCH (17:56)
[2017-01-23] MEDS: Omeprazole 20 MG Cap.CR PO SCH ×2 (06:26→18:06)
[2017-01-23] MEDS: Albuterol/Ipratropium 3.0-0.5 MG/3 ML Neb Soln NEB SCH ×4 (06:27→20:02)
[2017-01-23] MEDS: Budesonide 0.5 MG/2 ML Neb Susp INH SCH ×2 (06:43→18:26)
[2017-01-23] MEDS: Ondansetron 4 MG Tab.DIS PO PRN (08:12)
[2017-01-23] MEDS: Aspirin 81 MG Tab.EC PO SCH (08:51)
[2017-01-23] MEDS: Ferrous Sulfate 325 MG Tab PO SCH ×2 (08:51→18:06)
[2017-01-23] MEDS: Furosemide 40 MG Tab PO SCH (08:51)
[2017-01-23] MEDS: Amiodarone 200 MG Tab PO SCH (08:52)
[2017-01-23] MEDS: Acetaminophen 325 MG Tab PO PRN (08:53)
[2017-01-23] MEDS: methylPREDNISolone Sodium Succinate 125 MG/2 ML SDV IVPUSH SCH (10:43)
[2017-01-23] MEDS: Docusate Sodium 100 MG Cap PO SCH ×2 (12:12→21:12)
[2017-01-23] MEDS: Potassium Chloride 20 MEQ Tab.ER PO SCH (12:13)
[2017-01-23] MEDS: Zinc Oxide/Eucerin/Nystatin/Karaya 237 ML JAR TOP SCH ×2 (12:58→21:12)
[2017-01-23] MEDS: Cholecalciferol (Vitamin D3) 1,000 Unit Tab PO SCH (18:06)
[2017-01-23] MEDS: Magnesium Hydroxide 400 MG/5 ML Susp 30 ML Cup PO PRN (18:07)
[2017-01-23] MEDS: traZODone 50 MG Tab PO SCH (21:13)
[2017-01-24] MEDS: Albuterol/Ipratropium 3.0-0.5 MG/3 ML Neb Soln NEB SCH ×4 (06:36→20:02)
[2017-01-24] MEDS: Omeprazole 20 MG Cap.CR PO SCH ×2 (06:39→18:21)
[2017-01-24] MEDS: Budesonide 0.5 MG/2 ML Neb Susp INH SCH ×2 (06:55→18:21)
[2017-01-24] MEDS ORDERED: Midazolam 1 MG/ML 2 ML SDV ONE ×2 (07:38→07:56)
[2017-01-24] MEDS ORDERED: Ketamine 500 mg/10 ML MDV ONE (07:56)
[2017-01-24] MEDS ORDERED: Propofol 200 MG/20 ML SDV ONE (07:57)
[2017-01-24] MEDS ORDERED: Lactated Ringers 1,000 ML ONE (07:57)
[2017-01-24] MEDS ORDERED: EPINEPHrine 1:10,000 1 MG/10 ML Syringe ONE (07:59)
[2017-01-24] MEDS ORDERED: Lactated Ringers 1,000 ML IV SCH (08:30)
[2017-01-24] MEDS ORDERED: Ketamine 500 mg/10 ML MDV IV ONE (08:55)
[2017-01-24] MEDS ORDERED: Midazolam 1 MG/ML 2 ML SDV IV ONE (08:55)
[2017-01-24] MEDS: Aspirin 81 MG Tab.EC PO SCH (09:35)
[2017-01-24] MEDS: Zinc Oxide/Eucerin/Nystatin/Karaya 237 ML JAR TOP SCH ×2 (09:35→20:14)
[2017-01-24] MEDS: Furosemide 40 MG Tab PO SCH (09:36)
[2017-01-24] MEDS: Ferrous Sulfate 325 MG Tab PO SCH ×2 (09:37→18:21)
[2017-01-24] MEDS: Amiodarone 200 MG Tab PO SCH (09:37)
--- NOTE | 2017-01-24 09:42 | PCM.OPNOTE ---
- General Post-Op/Procedure Note Date of Surgery/Procedure: 01/24/17 Operative Procedure(s): Removal of percutaneous gastrostomy tube Anesthesia Technique: MAC Primary Surgeon: Luis Wells Complications: None Condition: Good Free Text/Narrative:: Intake & Output 01/23/17 01/24/17 01/24/17 22:59 06:59 14:59 Intake Total 490 0 Balance 490 0 Preoperative diagnosis: Retained percutaneous gastrostomy tube. This tube was placed for feeding purposes while the patient was Chas and intubated. Postop diagnosis: As above. Procedure performed: Removal of percutaneous gastrostomy tube. Informed consent was obtained from patient regarding this procedure. The patient was given light sedation and the percutaneous gastrostomy tube was deflated and removed intact without complication.the patient was transferred to the recovery room in an excellent condition.
[2017-01-24] MEDS: Magnesium Hydroxide 400 MG/5 ML Susp 30 ML Cup PO PRN (09:44)
[2017-01-24] MEDS: Docusate Sodium 100 MG Cap PO SCH ×2 (13:08→21:15)
[2017-01-24] MEDS: Potassium Chloride 20 MEQ Tab.ER PO SCH (13:08)
[2017-01-24] MEDS: Cholecalciferol (Vitamin D3) 1,000 Unit Tab PO SCH (18:21)
[2017-01-24] MEDS: traZODone 50 MG Tab PO SCH (21:15)
[2017-01-25] MEDS: Omeprazole 20 MG Cap.CR PO SCH ×2 (06:23→17:55)
[2017-01-25] MEDS: Albuterol/Ipratropium 3.0-0.5 MG/3 ML Neb Soln NEB SCH ×4 (06:35→20:36)
[2017-01-25] MEDS: Budesonide 0.5 MG/2 ML Neb Susp INH SCH ×2 (06:55→20:26)
[2017-01-25] MEDS: Ferrous Sulfate 325 MG Tab PO SCH ×2 (08:47→17:55)
[2017-01-25] MEDS: Amiodarone 200 MG Tab PO SCH (08:48)
[2017-01-25] MEDS: Furosemide 40 MG Tab PO SCH (08:49)
[2017-01-25] MEDS: Aspirin 81 MG Tab.EC PO SCH (08:50)
[2017-01-25] MEDS: Zinc Oxide/Eucerin/Nystatin/Karaya 237 ML JAR TOP SCH ×2 (08:52→20:49)
[2017-01-25] MEDS: Acetaminophen 325 MG Tab PO PRN ×2 (09:01→23:25)
[2017-01-25] MEDS: Magnesium Hydroxide 400 MG/5 ML Susp 30 ML Cup PO PRN (09:04)
[2017-01-25] MEDS: Docusate Sodium 100 MG Cap PO SCH ×2 (11:56→20:48)
[2017-01-25] MEDS: Potassium Chloride 20 MEQ Tab.ER PO SCH (11:56)
[2017-01-25] MEDS: Cholecalciferol (Vitamin D3) 1,000 Unit Tab PO SCH (17:55)
[2017-01-25] MEDS: traZODone 50 MG Tab PO SCH (20:48)
[2017-01-26] MEDS: Omeprazole 20 MG Cap.CR PO SCH ×2 (07:18→16:48)
[2017-01-26] MEDS: Ondansetron 4 MG Tab.DIS PO PRN (07:18)
[2017-01-26] MEDS: Albuterol/Ipratropium 3.0-0.5 MG/3 ML Neb Soln NEB SCH ×4 (07:19→19:56)
[2017-01-26] MEDS: Budesonide 0.5 MG/2 ML Neb Susp INH SCH ×2 (08:12→19:47)
[2017-01-26] MEDS: Ferrous Sulfate 325 MG Tab PO SCH ×2 (08:56→17:54)
[2017-01-26] MEDS: Aspirin 81 MG Tab.EC PO SCH (08:58)
[2017-01-26] MEDS: Amiodarone 200 MG Tab PO SCH (08:58)
[2017-01-26] MEDS: Zinc Oxide/Eucerin/Nystatin/Karaya 237 ML JAR TOP SCH (08:59)
[2017-01-26] MEDS: Furosemide 40 MG Tab PO SCH (08:59)
[2017-01-26] MEDS: Acetaminophen 325 MG Tab PO PRN ×2 (09:03→21:40)
[2017-01-26] MEDS ORDERED: Zinc Oxide/Eucerin/Nystatin/Karaya 237 ML JAR TOP PRN (11:25)
[2017-01-26] MEDS: Docusate Sodium 100 MG Cap PO SCH ×2 (12:15→20:07)
[2017-01-26] MEDS: Potassium Chloride 20 MEQ Tab.ER PO SCH (12:18)
[2017-01-26] MEDS: Ascorbic Acid 500 MG Tab PO SCH (17:54)
[2017-01-26] MEDS: Cholecalciferol (Vitamin D3) 1,000 Unit Tab PO SCH (17:54)
[2017-01-26] MEDS: traZODone 50 MG Tab PO SCH (20:55)
[2017-01-27] MEDS: Albuterol/Ipratropium 3.0-0.5 MG/3 ML Neb Soln NEB SCH ×4 (06:27→19:53)
[2017-01-27] MEDS: Budesonide 0.5 MG/2 ML Neb Susp INH SCH ×2 (06:37→19:41)
[2017-01-27] MEDS: Omeprazole 20 MG Cap.CR PO SCH ×2 (06:46→16:54)
[2017-01-27] MEDS: Furosemide 40 MG Tab PO SCH (09:00)
[2017-01-27] MEDS: Ferrous Sulfate 325 MG Tab PO SCH ×2 (09:00→18:02)
[2017-01-27] MEDS: Aspirin 81 MG Tab.EC PO SCH (09:00)
[2017-01-27] MEDS: Ascorbic Acid 500 MG Tab PO SCH ×2 (09:00→18:02)
[2017-01-27] MEDS: Amiodarone 200 MG Tab PO SCH (09:00)
[2017-01-27] MEDS: Acetaminophen 325 MG Tab PO PRN ×2 (09:23→21:03)
--- NOTE | 2017-01-27 11:06 | PCM.PN ---
- General Info Date of Service: 01/27/17 Admission Dx/Problem (Free Text): Chief complaint: Weakness need for rehabilitation History of present illness: 71-year-old white female admitted to skilled care after a lengthy hospitalization in [place] for almost 8 weeks. Patient had initially developed influenza A. followed by bilateral bacterial pneumonias. Patient went into ARDS. Patient required tracheostomy, ventilation, respiratory management for almost 4 weeks. Patient presented for swing bed skilled care admission for strength building, rehabilitation. Patient does have a chronic gastrostomy tube, previous tracheostomy icompletely healed. Patient reported a loose cough on admission. Significant weakness of both lower extremities do to demyelination. Hospital discharge diagnosis: Acute hypoxic respiratory failure due to empyema/pneumonia Extensive pneumonia Extended mechanical ventilation Tracheostomy Bilateral pleural effusions-large Profound weakness Post right thoracoscopy-decortication right middle lobe and right lower lobe, drainage of empyema and placement of chest tubes x2, subsequently removed Chronic hypoxia Acute on chronic diastolic heart failure Atrial fibrillation Anemia of chronic disease. Course while in the hospital: Acute hypoxic respiratory failure. Patient admitted to [facility] with influenza complicated by MRSA pneumonia, sepsis, right-sided empyema requiring intubation, mechanical ventilation-extended requiring even tracheostomy. PEG tube placement and enteral feedings Acute on chronic diastolic heart failure will-with some leg swelling, pulmonary edema-managed with Lasix Critical illness neuropathy and myopathy-aggressive PT and OT was done Constipation Component of urinary tract infection Urinary retention-thought probably from the decreased mobility Atrial fibrillation DVT prophylaxis Iron deficiency anemia Hypokalemia Nausea Patient admitted to skilled care for further rehabilitation, strength building, medication management and titration, tube feedings. Patient making gradual very good positive improvement. Tube feedings discontinued and G-tube removed. _ Patient reports today: Patient reports she really feels good Gradually getting stronger Walking multiple times a day Doing physical therapy for at least one hour every day Reports she can walk to the bathroom now with the assistance of one Able to stand much longer Appetite good-3 meals a day Plans to start taking passes and gradually built her strength up so potentially can go home next week-plans to go home over the for visitations on Sunday and Sunday out on pass Nurses report today: Doing well No acute problems Functional Status: Reports: pain controlled, tolerating diet, ambulating (With walker and assistance of one monitoring) - Review of Systems General: Reports: Weakness (Improving), Fatigue (Improving), Appetite (Good appetite). Denies: Fever, Chills HEENT: Reports: no symptoms, other (Tracheostomy site healed) Pulmonary: Reports: shortness of breath (Always a little short of breath-but much better overall). Denies: cough, wheezing Cardiovascular: Reports: No Symptoms Gastrointestinal: Reports: No symptoms, Other (G-tube site healing nicely) Genitourinary: Reports: no symptoms Musculoskeletal: Reports: no symptoms Neurological: Reports: No Symptoms, Weakness (Gradually improving nicely) Psychiatric: Reports: no symptoms - Patient Data Vitals - most recent: Last Vital Signs Temp 97.6 F 01/27/17 06:38 Pulse 69 01/27/17 06:38 Resp 20 01/27/17 06:38 BP 137/55 L 01/27/17 06:38 Pulse Ox 98 01/27/17 06:38 Weight - most recent: 186 lb 3.2 oz I&O - last 24 hours: Intake & Output 01/26/17 01/27/17 01/27/17 22:59 06:59 14:59 Intake Total 600 50 Balance 600 50 Michelet Results last 24 hrs: Microbiology 01/18/17 10:45 Bacterial Identification - Final Sputum - Expectorated Staphylococcus Aureus Med Orders - Current: Current Medications Acetaminophen (Tylenol) 650 mg PO Q4H PRN PRN Reason: Pain Last Admin: 01/27/17 09:23 Dose: 650 mg Albuterol/Ipratropium (Duoneb 3.0-0.5 Mg/3 Ml) 3 ml NEB Q4H PRN PRN Reason: Dyspnea Albuterol/Ipratropium (Duoneb 3.0-0.5 Mg/3 Ml) 3 ml NEB 0600,1100,1600,2000 [facility] Last Admin: 01/27/17 06:27 Dose: 3 ml Amiodarone HCl (Cordarone) 200 mg PO DAILY [facility] Last Admin: 01/27/17 09:00 Dose: 200 mg Ascorbic Acid (Vitamin C) 500 mg PO BIDMEALS [facility] Last Admin: 01/27/17 09:00 Dose: 500 mg Aspirin (Halfprin) 81 mg PO DAILY [facility] Last Admin: 01/27/17 09:00 Dose: 81 mg Bisacodyl (Dulcolax) 10 mg RECTAL DAILY PRN PRN Reason: Constipation Last Admin: 01/21/17 08:45 Dose: 10 mg Budesonide (Pulmicort) 0.5 mg INH BID@0700,2000 [facility] Last Admin: 01/27/17 06:37 Dose: 0.5 mg Cholecalciferol (Vitamin D3) 4,000 units PO DAILY@1800 [facility] Last Admin: 01/26/17 17:54 Dose: 4,000 units Diphenhydramine HCl (Benadryl) 25 - 50 mg PO Q4H PRN PRN Reason: Itching Last Admin: 01/20/17 01:12 Dose: 25 mg Docusate Sodium (Colace) 100 mg PO BID@1200,2100 [facility] Last Admin: 01/26/17 20:07 Dose: 100 mg Ferrous Sulfate (Ferrous Sulfate) 325 mg PO BIDMEALS [facility] Last Admin: 01/27/17 09:00 Dose: 325 mg Furosemide (Lasix) 40 mg PO DAILY [facility] Last Admin: 01/27/17 09:00 Dose: 40 mg Lactulose (Cephulac) 20 gm PO BID PRN PRN Reason: Constipation Last Admin: 01/20/17 20:53 Dose: 20 gm Magnesium Hydroxide (Milk Of Magnesia) 30 ml PO DAILY PRN PRN Reason: Constipation Last Admin: 01/25/17 09:04 Dose: 30 ml Multi-Ingred Cream/Lotion/Oil/Oint (Kmed) 0 ml TOP BEDTIME PRN PRN Reason: Wound Care Omeprazole (Omeprazole) 20 mg PO BIDAC [facility] Last Admin: 01/27/17 06:46 Dose: 20 mg Ondansetron HCl (Zofran Odt) 4 mg PO Q6H PRN PRN Reason: Nausea/Vomiting Last Admin: 01/26/17 07:18 Dose: 4 mg Potassium Chloride (Klor-Con M20) 20 meq PO DAILY@1200 [facility] Last Admin: 01/26/17 12:18 Dose: 20 meq Tramadol HCl (Ultram) 50 mg PO Q6H PRN PRN Reason: Pain (moderate 4-6) Trazodone HCl (Trazodone) 50 mg PO BEDTIME [facility] Last Admin: 01/26/17 20:55 Dose: 50 mg Discontinued Medications Albuterol/Ipratropium (Duoneb 3.0-0.5 Mg/3 Ml) 3 ml NEB QIDRT [facility] Last Admin: 01/05/17 05:55 Dose: 3 ml Budesonide (Pulmicort) 0.5 mg INH BIDRT [facility] Last Admin: 01/05/17 07:30 Dose: 0.5 mg Budesonide (Pulmicort) 0.5 mg INH BID@0700,1900 [facility] Last Admin: 01/25/17 06:55 Dose: 0.5 mg Cholecalciferol (Vitamin D3) 4,000 units PO DAILY [facility] Last Admin: 01/11/17 13:58 Dose: Not Given Ciprofloxacin (Ciprofloxacin Hcl) 500 mg PO BID [facility] Stop: 01/11/17 23:59 Last Admin: 01/11/17 20:11 Dose: 500 mg Docusate Sodium (Colace) 100 mg PO BID [facility] Last Admin: 01/11/17 11:37 Dose: 100 mg Epinephrine HCl (Epinephrine 1:10,000) Confirm Administered Dose 1 mg .ROUTE .STK-MED ONE Stop: 01/24/17 08:00 Last Admin: 01/24/17 10:53 Dose: Not Given Ferrous Sulfate (Ferrous Sulfate) 325 mg PO WITHBREAKFAST [facility] Last Admin: 01/11/17 09:31 Dose: 325 mg Ferrous Sulfate (Ferrous Sulfate) 325 mg PO DAILY@1800 [facility] Ferrous Sulfate (Ferrous Sulfate) 325 mg PO TIDMEALS [facility] Last Admin: 01/21/17 10:17 Dose: 325 mg Ferrous Sulfate (Ferrous Sulfate) 325 mg PO DAILY [facility] Last Admin: 01/23/17 08:51 Dose: 325 mg Fluconazole (Diflucan) 150 mg PO ONETIME@1800 ONE Stop: 01/11/17 18:01 Last Admin: 01/11/17 17:00 Dose: 150 mg Fluconazole (Diflucan) 150 mg PO DAILY@1800 [facility] Stop: 01/13/17 18:01 Last Admin: 01/13/17 17:28 Dose: 150 mg Lactated Ringer's (Ringers, Lactated) 1,000 mls @ 50 mls/hr IV ASDIRECTED [facility] Stop: 01/24/17 23:59 Lactated Ringer's (Ringers, Lactated) Confirm Administered Dose 1,000 mls @ as directed .ROUTE .[facility] ONE Stop: 01/24/17 07:58 Last Admin: 01/24/17 10:53 Dose: Not Given Ketamine HCl (Ketalar) Confirm Administered Dose 500 mg .ROUTE .[facility] Stop: 01/24/17 07:57 Last Admin: 01/24/17 10:52 Dose: Not Given Ketamine HCl (Ketalar) 25 mg IV .[facility] Stop: 01/24/17 08:56 Lactulose (Cephulac) 20 gm PO BID [facility] Last Admin: 01/10/17 09:29 Dose: 20 gm Methylprednisolone Sodium Succinate (Solu-Medrol) 80 mg IVPUSH BID [facility] Last Admin: 01/19/17 09:57 Dose: Not Given Methylprednisolone Sodium Succinate (Solu-Medrol) 80 mg IVPUSH DAILY [facility] Last Admin: 01/21/17 08:46 Dose: 80 mg Methylprednisolone Sodium Succinate (Solu-Medrol) 40 mg IVPUSH DAILY [facility] Last Admin: 01/23/17 10:43 Dose: Not Given Metoclopramide HCl (Reglan) 10 mg PO TID PRN PRN Reason: Nausea Last Admin: 01/10/17 06:21 Dose: 10 mg Midazolam HCl (Versed 1 Mg/Ml) Confirm Administered Dose 4 mg .ROUTE .[facility] Stop: 01/24/17 07:39 Last Admin: 01/24/17 10:51 Dose: Not Given Midazolam HCl (Versed 1 Mg/Ml) Confirm Administered Dose 4 mg .ROUTE .[facility] ONE Stop: 01/24/17 07:57 Last Admin: 01/24/17 10:52 Dose: Not Given Midazolam HCl (Versed 1 Mg/Ml) 6 mg IV .[facility] ONE Stop: 01/24/17 08:56 Multi-Ingred Cream/Lotion/Oil/Oint (Kmed) 0 ml TOP BID [facility] Last Admin: 01/26/17 08:59 Dose: Not Given Ondansetron HCl (Zofran) 4 mg IVPUSH Q4H PRN PRN Reason: Nausea/Vomiting Potassium Chloride (Klor-Con M20) 20 meq PO DAILY [facility] Last Admin: 01/11/17 12:24 Dose: 20 meq Propofol (Diprivan 20 Ml) Confirm Administered Dose 200 mg .ROUTE .STK-MED ONE Stop: 01/24/17 07:58 Last Admin: 01/24/17 10:52 Dose: Not Given Sodium Chloride (Syrex Flush) 5 ml FLUSH Q8HR PRN PRN Reason: Keep Vein Open Tramadol HCl (Ultram) 100 mg PO DAILY PRN PRN Reason: Insomnia Last Admin: 01/04/17 21:21 Dose: 100 mg Tramadol HCl (Ultram) 50 mg PO ONETIME ONE Stop: 01/16/17 18:56 Last Admin: 01/16/17 19:08 Dose: 50 mg Tramadol HCl (Ultram) 50 mg PO ONETIME PRN PRN Reason: Pain Stop: 01/16/17 23:59 - Exam Quality Assessment: No: supplemental oxygen General: alert, oriented, cooperative, no acute distress, other (Sitting up in chair looks markedly better than a couple weeks ago, conversive) HEENT: Pupils equal, Pupils reactive, EOMI, Mucous membr. moist/pink, Other ( Wears glasses). No: Scleral icterus Neck: supple, trachea midline, no JVD, no thyromegaly, other (Tracheostomy site completely healed). No: lymphadenopathy Lungs: Normal respiratory effort (At rest), Rales (Few scattered throughout) Cardiovascular: Irregular Rhythm (-controlled ventricular rate) Abdomen: bowel sounds present, soft, no tenderness, no distension, other (G- tube site healing nicely). No: rigidity, rebound, guarding, tenderness, distension Extremities: edema (Very minimal) Neurological: no new focal deficit Psy/Mental Status: alert, normal affect, normal mood - Problem List Review Problem List Initiated/Reviewed/Updated: Yes - Assessment Assessment:: Generalized weakness and debilitation secondary to below-need for strength building and rehabilitation-making gradual progress improvement-amazing to see how much better she is than 2 weeks ago even Post acute hypoxic respiratory failure requiring extended mechanical ventilation -extubated and tracheostomy site-doing well Chronic hypoxia with secondary O2 therapy-doing much better-not requiring oxygen therapy at this time Post severe pneumonia with empyema-marked improvement Gastroparesis-doing well-tube feedings [id number] removed Chronic enteral feedings-no longer present/discontinued/G-tube removed Diastolic heart failure history-clinically well controlled History of urinary tract infection Atrial fibrillation history-clinically well controlled Anemia-iron deficiency-gradually improving Bilateral pleural effusion-clinically doing much better Status post thoracoscopy-decortication right middle lobe and right lower lobe, drainage of empyema and placement of chest tubes x2 subsequently removed-history Previous urinary tract infection - Plan Plan:: Reviewed present treatment regimen-continue same regimen except changes as listed below CBC, CMP Sunday a.m. Agree with short passes to build strength prior to discharge
[2017-01-27] MEDS: Potassium Chloride 20 MEQ Tab.ER PO SCH (12:15)
[2017-01-27] MEDS: Docusate Sodium 100 MG Cap PO SCH ×2 (12:15→21:03)
[2017-01-27] MEDS: Magnesium Hydroxide 400 MG/5 ML Susp 30 ML Cup PO PRN (12:15)
[2017-01-27] MEDS: Cholecalciferol (Vitamin D3) 1,000 Unit Tab PO SCH (18:02)
[2017-01-27] MEDS: traZODone 50 MG Tab PO SCH (21:03)
[2017-01-28] MEDS: Omeprazole 20 MG Cap.CR PO SCH ×2 (07:57→16:46)
[2017-01-28] MEDS: Albuterol/Ipratropium 3.0-0.5 MG/3 ML Neb Soln NEB SCH ×4 (07:57→19:56)
[2017-01-28] MEDS: Budesonide 0.5 MG/2 ML Neb Susp INH SCH ×2 (08:03→19:46)
[2017-01-28] MEDS: Ferrous Sulfate 325 MG Tab PO SCH ×2 (09:05→18:36)
[2017-01-28] MEDS: Furosemide 40 MG Tab PO SCH (09:05)
[2017-01-28] MEDS: Amiodarone 200 MG Tab PO SCH (09:05)
[2017-01-28] MEDS: Aspirin 81 MG Tab.EC PO SCH (09:05)
[2017-01-28] MEDS: Ascorbic Acid 500 MG Tab PO SCH ×2 (09:05→18:36)
[2017-01-28] MEDS: Doxycycline 100 MG Tab PO SCH ×2 (11:29→21:02)
[2017-01-28] MEDS: Docusate Sodium 100 MG Cap PO SCH ×2 (11:29→21:02)
[2017-01-28] MEDS: Potassium Chloride 20 MEQ Tab.ER PO SCH (11:32)
[2017-01-28] MEDS: Acetaminophen 325 MG Tab PO PRN ×2 (11:39→21:02)
[2017-01-28] MEDS: Cholecalciferol (Vitamin D3) 1,000 Unit Tab PO SCH (18:37)
[2017-01-28] MEDS: traZODone 50 MG Tab PO SCH (21:02)
[2017-01-29] MEDS: Omeprazole 20 MG Cap.CR PO SCH ×2 (06:45→17:42)
[2017-01-29] MEDS: Ferrous Sulfate 325 MG Tab PO SCH ×2 (06:45→17:42)
[2017-01-29] MEDS: Albuterol/Ipratropium 3.0-0.5 MG/3 ML Neb Soln NEB SCH ×4 (06:48→20:41)
[2017-01-29] MEDS: Budesonide 0.5 MG/2 ML Neb Susp INH SCH ×2 (07:15→19:53)
[2017-01-29] MEDS: Ondansetron 4 MG Tab.DIS PO PRN (07:45)
[2017-01-29 07:57] LABS: CHLORIDE,CL 101 mmol/L (98-115); SODIUM,NA 141 mmol/L (136-145)
[2017-01-29] MEDS: Ascorbic Acid 500 MG Tab PO SCH ×2 (08:16→18:53)
[2017-01-29] MEDS: Acetaminophen 325 MG Tab PO PRN ×2 (08:17→20:44)
[2017-01-29] MEDS: Furosemide 40 MG Tab PO SCH (08:47)
[2017-01-29] MEDS: Amiodarone 200 MG Tab PO SCH (08:47)
[2017-01-29] MEDS: Aspirin 81 MG Tab.EC PO SCH (08:47)
[2017-01-29] MEDS: Doxycycline 100 MG Tab PO SCH (10:30)
[2017-01-29] MEDS: Potassium Chloride 20 MEQ Tab.ER PO SCH (11:59)
[2017-01-29] MEDS: Docusate Sodium 100 MG Cap PO SCH ×2 (11:59→20:44)
[2017-01-29] MEDS: Magnesium Hydroxide 400 MG/5 ML Susp 30 ML Cup PO PRN (17:42)
[2017-01-29] MEDS: Cholecalciferol (Vitamin D3) 1,000 Unit Tab PO SCH (18:53)
[2017-01-29] MEDS: traZODone 50 MG Tab PO SCH (20:44)
[2017-01-30] MEDS: Omeprazole 20 MG Cap.CR PO SCH ×2 (06:41→17:57)
[2017-01-30] MEDS: Ferrous Sulfate 325 MG Tab PO SCH ×2 (06:41→17:57)
[2017-01-30] MEDS: Albuterol/Ipratropium 3.0-0.5 MG/3 ML Neb Soln NEB SCH ×2 (06:45→10:32)
[2017-01-30] MEDS: Budesonide 0.5 MG/2 ML Neb Susp INH SCH (07:00)
[2017-01-30] MEDS: Ondansetron 4 MG Tab.DIS PO PRN (07:31)
[2017-01-30] MEDS: Ascorbic Acid 500 MG Tab PO SCH ×2 (08:10→17:56)
[2017-01-30] MEDS: Amiodarone 200 MG Tab PO SCH (08:35)
[2017-01-30] MEDS: Aspirin 81 MG Tab.EC PO SCH (08:36)
[2017-01-30] MEDS: Furosemide 40 MG Tab PO SCH (08:36)
[2017-01-30] MEDS: Magnesium Hydroxide 400 MG/5 ML Susp 30 ML Cup PO PRN (08:40)
[2017-01-30] MEDS: Acetaminophen 325 MG Tab PO PRN ×2 (10:00→20:24)
[2017-01-30] MEDS ORDERED: Umeclidinium Bromide 62.5 MCG 30 Puff Inhaler IH SCH (11:00)
[2017-01-30] MEDS ORDERED: Formoterol/Mometasone 100-5 MCG 8.8 GM Inhaler IH SCH (11:00)
[2017-01-30] MEDS: Docusate Sodium 100 MG Cap PO SCH ×2 (11:44→20:24)
[2017-01-30] MEDS: Cholecalciferol (Vitamin D3) 1,000 Unit Tab PO SCH (17:56)
[2017-01-30] MEDS: Formoterol/Mometasone 100-5 MCG 8.8 GM Inhaler IH SCH (20:23)
[2017-01-30] MEDS: traZODone 50 MG Tab PO SCH (20:24)
[2017-01-31] MEDS: Ferrous Sulfate 325 MG Tab PO SCH ×2 (06:42→18:02)
[2017-01-31] MEDS: Omeprazole 20 MG Cap.CR PO SCH ×2 (06:42→17:19)
[2017-01-31] MEDS: Ascorbic Acid 500 MG Tab PO SCH ×2 (08:46→18:02)
[2017-01-31] MEDS: Amiodarone 200 MG Tab PO SCH (08:47)
[2017-01-31] MEDS: Aspirin 81 MG Tab.EC PO SCH (08:47)
[2017-01-31] MEDS: Formoterol/Mometasone 100-5 MCG 8.8 GM Inhaler IH SCH ×2 (09:28→21:18)
[2017-01-31] MEDS: Umeclidinium Bromide 62.5 MCG 30 Puff Inhaler IH SCH (09:32)
[2017-01-31] MEDS: Acetaminophen 325 MG Tab PO PRN ×2 (09:49→21:19)
[2017-01-31] MEDS: Docusate Sodium 100 MG Cap PO SCH ×2 (11:43→21:19)
[2017-01-31] MEDS: Cholecalciferol (Vitamin D3) 1,000 Unit Tab PO SCH (18:02)
[2017-01-31] MEDS: diphenhydrAMINE 25 MG Cap PO PRN (23:44)
[2017-02-01] MEDS: Ferrous Sulfate 325 MG Tab PO SCH ×2 (06:07→19:00)
[2017-02-01] MEDS: Omeprazole 20 MG Cap.CR PO SCH ×2 (06:07→19:00)
[2017-02-01] MEDS: Formoterol/Mometasone 100-5 MCG 8.8 GM Inhaler IH SCH ×2 (09:12→20:53)
[2017-02-01] MEDS: Amiodarone 200 MG Tab PO SCH (09:17)
[2017-02-01] MEDS: Umeclidinium Bromide 62.5 MCG 30 Puff Inhaler IH SCH (09:17)
[2017-02-01] MEDS: Aspirin 81 MG Tab.EC PO SCH (09:17)
[2017-02-01] MEDS: Ascorbic Acid 500 MG Tab PO SCH ×2 (09:18→19:01)
[2017-02-01] MEDS: Acetaminophen 325 MG Tab PO PRN ×2 (09:23→20:52)
[2017-02-01] MEDS: Docusate Sodium 100 MG Cap PO SCH ×2 (12:39→20:51)
[2017-02-01] MEDS: Cholecalciferol (Vitamin D3) 1,000 Unit Tab PO SCH (19:01)
[2017-02-01] MEDS: traZODone 50 MG Tab PO PRN (22:21)
[2017-02-02] MEDS: Omeprazole 20 MG Cap.CR PO SCH ×2 (06:50→17:16)
[2017-02-02] MEDS: Ferrous Sulfate 325 MG Tab PO SCH ×2 (06:50→18:15)
[2017-02-02] MEDS: Acetaminophen 325 MG Tab PO PRN ×2 (09:05→14:16)
[2017-02-02] MEDS: Umeclidinium Bromide 62.5 MCG 30 Puff Inhaler IH SCH (09:06)
[2017-02-02] MEDS: Ascorbic Acid 500 MG Tab PO SCH ×2 (09:07→18:15)
[2017-02-02] MEDS: Amiodarone 200 MG Tab PO SCH (09:07)
[2017-02-02] MEDS: Aspirin 81 MG Tab.EC PO SCH (09:08)
[2017-02-02] MEDS: Formoterol/Mometasone 100-5 MCG 8.8 GM Inhaler IH SCH ×2 (09:08→21:34)
[2017-02-02] MEDS: Docusate Sodium 100 MG Cap PO SCH ×2 (12:06→21:34)
[2017-02-02] MEDS: B.Bifidum/B.Longum/L.Acidophilus/L.Rhamnosus (Probiotic) Cap PO SCH (12:06)
[2017-02-02] MEDS: Cholecalciferol (Vitamin D3) 1,000 Unit Tab PO SCH (18:15)
[2017-02-02] MEDS: traZODone 50 MG Tab PO PRN (21:34)
[2017-02-03] MEDS: Ferrous Sulfate 325 MG Tab PO SCH ×2 (06:00→17:51)
[2017-02-03] MEDS: Omeprazole 20 MG Cap.CR PO SCH ×2 (06:00→17:51)
[2017-02-03] MEDS: Ondansetron 4 MG Tab.DIS PO PRN (08:02)
[2017-02-03] MEDS: Formoterol/Mometasone 100-5 MCG 8.8 GM Inhaler IH SCH ×2 (09:08→21:15)
[2017-02-03] MEDS: Ascorbic Acid 500 MG Tab PO SCH ×2 (09:09→17:51)
[2017-02-03] MEDS: Amiodarone 200 MG Tab PO SCH (09:09)
[2017-02-03] MEDS: Aspirin 81 MG Tab.EC PO SCH (09:11)
[2017-02-03] MEDS: Umeclidinium Bromide 62.5 MCG 30 Puff Inhaler IH SCH (09:12)
[2017-02-03] MEDS: Docusate Sodium 100 MG Cap PO SCH ×2 (11:09→21:13)
[2017-02-03] MEDS: B.Bifidum/B.Longum/L.Acidophilus/L.Rhamnosus (Probiotic) Cap PO SCH (11:09)
[2017-02-03] MEDS: Cholecalciferol (Vitamin D3) 1,000 Unit Tab PO SCH (17:51)
[2017-02-03] MEDS: Acetaminophen 325 MG Tab PO PRN (21:13)
[2017-02-04] MEDS: Ferrous Sulfate 325 MG Tab PO SCH ×2 (06:26→17:50)
[2017-02-04] MEDS: Omeprazole 20 MG Cap.CR PO SCH ×2 (06:28→17:50)
[2017-02-04] MEDS: Formoterol/Mometasone 100-5 MCG 8.8 GM Inhaler IH SCH ×2 (08:31→21:06)
[2017-02-04] MEDS: Ascorbic Acid 500 MG Tab PO SCH ×2 (08:32→17:50)
[2017-02-04] MEDS: Amiodarone 200 MG Tab PO SCH (08:32)
[2017-02-04] MEDS: Aspirin 81 MG Tab.EC PO SCH (08:34)
[2017-02-04] MEDS: Umeclidinium Bromide 62.5 MCG 30 Puff Inhaler IH SCH (08:38)
[2017-02-04] MEDS: Ondansetron 4 MG Tab.DIS PO PRN (08:38)
[2017-02-04] MEDS: Acetaminophen 325 MG Tab PO PRN ×2 (10:52→21:03)
[2017-02-04] MEDS: B.Bifidum/B.Longum/L.Acidophilus/L.Rhamnosus (Probiotic) Cap PO SCH (13:02)
[2017-02-04] MEDS: Docusate Sodium 100 MG Cap PO SCH ×2 (13:02→21:03)
[2017-02-04] MEDS: Cholecalciferol (Vitamin D3) 1,000 Unit Tab PO SCH (17:51)
[2017-02-05] MEDS: Omeprazole 20 MG Cap.CR PO SCH ×2 (06:18→17:33)
[2017-02-05] MEDS: Ondansetron 4 MG Tab.DIS PO PRN (08:08)
[2017-02-05] MEDS: Ferrous Sulfate 325 MG Tab PO SCH (08:08)
[2017-02-05] MEDS: Umeclidinium Bromide 62.5 MCG 30 Puff Inhaler IH SCH (09:20)
[2017-02-05] MEDS: Formoterol/Mometasone 100-5 MCG 8.8 GM Inhaler IH SCH ×2 (09:21→20:59)
[2017-02-05] MEDS: Amiodarone 200 MG Tab PO SCH (09:21)
[2017-02-05] MEDS: Ascorbic Acid 500 MG Tab PO SCH (09:21)
[2017-02-05] MEDS: Aspirin 81 MG Tab.EC PO SCH (09:22)
[2017-02-05 09:46] LABS: CHLORIDE,CL 104 mmol/L (98-115); SODIUM,NA 140 mmol/L (136-145)
[2017-02-05] MEDS: Acetaminophen 325 MG Tab PO PRN ×2 (10:30→21:00)
--- NOTE | 2017-02-05 11:06 | PCM.PN ---
- General Info Date of Service: 02/05/17 Functional Status: Reports: pain controlled, tolerating diet, ambulating. Denies: new symptoms - Review of Systems General: Denies: Fever, Weakness HEENT: Reports: no symptoms Pulmonary: Reports: no symptoms Cardiovascular: Reports: Edema (Edema lower extremities much improved now only slight) Gastrointestinal: Denies: Constipation, Diarrhea, Nausea, Vomiting Genitourinary: Reports: no symptoms Neurological: Reports: Difficulty Walking, Weakness (Weakness much improved, using walker), Gait Disturbance - Patient Data Vitals - most recent: Last Vital Signs Temp 96.6 F 02/05/17 06:57 Pulse 66 02/05/17 06:57 Resp 20 02/05/17 06:57 BP 126/59 L 02/05/17 06:57 Pulse Ox 95 02/05/17 06:57 Weight - most recent: 186 lb 1 oz I&O - last 24 hours: Intake & Output 02/04/17 02/05/17 02/05/17 22:59 06:59 14:59 Intake Total 450 50 Balance 450 50 Lab Results last 24 hrs: Laboratory Results - last 24 hr 02/05/17 02/05/17 Range/Units 09:15 09:15 WBC 6.4 (5.0-10.0) 10^3/uL RBC 4.29 (3.80-5.50) 10^6/uL Hgb 12.1 (12.0-16.0) g/dL Hct 37.0 (37.0-47.0) % MCV 86.2 (82.0-92.0) fL MCH 28.2 (27.0-31.0) pg MCHC 32.7 (32.0-36.0) g/dL RDW 16.4 H (11.5-14.5) % Plt Count 348 H (150-300) 10^3/uL MPV 6.9 L (7.4-10.4) fL Neut % (Auto) 58.2 (50.0-70.0) % Lymph % (Auto) 24.9 (20.0-40.0) % [place] % (Auto) 7.9 (2.0-8.0) % Eos % (Auto) 7.3 H (1.0-3.0) % Baso % (Auto) 1.7 H (0.0-1.0) % Neut # (Auto) 3.7 (2.5-7.0) 10^3/uL Lymph # (Auto) 1.6 (1.0-4.0) 10^3/uL [place] # (Auto) 0.5 (0.1-0.8) 10^3/uL Eos # (Auto) 0.5 H (0.1-0.3) 10^3/uL Baso # (Auto) 0.1 (0.0-0.1) 10^3/uL Sodium 140 (136-145) mmol/L Potassium 3.4 (3.3-5.3) mmol/L Chloride 104 (98-115) mmol/L Carbon Dioxide 28.6 (21.0-32.0) mmol/L BUN 5 L (6-25) mg/dL Creatinine 0.52 (0.51-1.17) mg/dL Est Cr Clr Drug Dosing 91.55 mL/min Estimated GFR (MDRD) > 60 mL/min Glucose 106 (70-110) mg/dL Calcium 9.0 (8.7-10.3) mg/dL Med Orders - Current: Current Medications Acetaminophen (Tylenol) 650 mg PO Q4H PRN PRN Reason: Pain Last Admin: 02/05/17 10:30 Dose: 650 mg Amiodarone HCl (Cordarone) 200 mg PO DAILY [facility] Last Admin: 02/05/17 09:21 Dose: 200 mg Ascorbic Acid (Vitamin C) 500 mg PO DAILY [facility] Aspirin (Halfprin) 81 mg PO DAILY [facility] Last Admin: 02/05/17 09:22 Dose: 81 mg Bisacodyl (Dulcolax) 10 mg RECTAL DAILY PRN PRN Reason: Constipation Last Admin: 01/21/17 08:45 Dose: 10 mg Cholecalciferol (Vitamin D3) 4,000 units PO DAILY@1800 [facility] Last Admin: 02/04/17 17:51 Dose: Not Given Diphenhydramine HCl (Benadryl) 25 - 50 mg PO Q4H PRN PRN Reason: Itching Last Admin: 01/31/17 23:44 Dose: 50 mg Docusate Sodium (Colace) 100 mg PO BID@1200,2100 [facility] Last Admin: 02/04/17 21:03 Dose: 100 mg Ferrous Sulfate (Ferrous Sulfate) 325 mg PO DAILY [facility] Lactobacillus Acidophilus/Rhamnosus (Multi-Judy Plus) 1 cap PO DAILY@1200 [facility] Last Admin: 02/04/17 13:02 Dose: Not Given Lactulose (Cephulac) 20 gm PO BID PRN PRN Reason: Constipation Last Admin: 01/20/17 20:53 Dose: 20 gm Magnesium Hydroxide (Milk Of Magnesia) 30 ml PO DAILY PRN PRN Reason: Constipation Last Admin: 01/30/17 08:40 Dose: 30 ml Mometasone Furoate/Formoterol Fumar (Dulera 100-5 Mcg) 2 puff IH BID [facility] Last Admin: 02/05/17 09:21 Dose: 2 puff Multi-Ingred Cream/Lotion/Oil/Oint (Kmed) 0 ml TOP BEDTIME PRN PRN Reason: Wound Care Last Admin: 01/27/17 19:55 Dose: 1 applic [facility]) [facility] Last Admin: 02/05/17 06:18 Dose: 20 mg Ondansetron HCl (Zofran Odt) 4 mg PO Q6H PRN PRN Reason: Nausea/Vomiting Last Admin: 02/05/17 08:08 Dose: 4 mg Tramadol HCl (Ultram) 50 mg PO Q6H PRN PRN Reason: Pain (moderate 4-6) Trazodone HCl (Trazodone) 50 mg PO BEDTIME PRN PRN Reason: Insomnia Last Admin: 02/02/17 21:34 Dose: 50 mg Discontinued Medications Albuterol/Ipratropium (Duoneb 3.0-0.5 Mg/3 Ml) 3 ml NEB Q4H PRN PRN Reason: Dyspnea Albuterol/Ipratropium (Duoneb 3.0-0.5 Mg/3 Ml) 3 ml NEB QIDRT [facility] Last Admin: 01/05/17 05:55 Dose: 3 ml Albuterol/Ipratropium (Duoneb 3.0-0.5 Mg/3 Ml) 3 ml NEB 0600,1100,1600,2000 [facility] Last Admin: 01/30/17 10:32 Dose: 3 ml Ascorbic Acid (Vitamin C) 500 mg PO BIDMEALS [facility] Last Admin: 02/05/17 09:21 Dose: 500 mg Budesonide (Pulmicort) 0.5 mg INH BIDRT [facility] Last Admin: 01/05/17 07:30 Dose: 0.5 mg Budesonide (Pulmicort) 0.5 mg INH BID@0700,1900 [facility] Last Admin: 01/25/17 06:55 Dose: 0.5 mg Budesonide (Pulmicort) 0.5 mg INH BID@0700,2000 [facility] Last Admin: 01/30/17 07:00 Dose: 0.5 mg Cholecalciferol (Vitamin D3) 4,000 units PO DAILY [facility] Last Admin: 01/11/17 13:58 Dose: Not Given Ciprofloxacin (Ciprofloxacin Hcl) 500 mg PO BID [facility] Stop: 01/11/17 23:59 Last Admin: 01/11/17 20:11 Dose: 500 mg Docusate Sodium (Colace) 100 mg PO BID [facility] Last Admin: 01/11/17 11:37 Dose: 100 mg Doxycycline Hyclate (Vibramycin) 100 mg PO Q12H [facility] Last Admin: 02/05/17 10:34 Dose: Not Given Doxycycline Monohydrate (Vibramycin) 100 mg PO Q12H [facility] Last Admin: 01/29/17 10:30 Dose: 100 mg Epinephrine HCl (Epinephrine 1:10,000) Confirm Administered Dose 1 mg .ROUTE .STK-MED ONE Stop: 01/24/17 08:00 Last Admin: 01/24/17 10:53 Dose: Not Given Ferrous Sulfate (Ferrous Sulfate) 325 mg PO WITHBREAKFAST [facility] Last Admin: 01/11/17 09:31 Dose: 325 mg Ferrous Sulfate (Ferrous Sulfate) 325 mg PO DAILY@1800 [facility] Ferrous Sulfate (Ferrous Sulfate) 325 mg PO TIDMEALS [facility] Last Admin: 01/21/17 10:17 Dose: 325 mg Ferrous Sulfate (Ferrous Sulfate) 325 mg PO DAILY [facility] Last Admin: 01/23/17 08:51 Dose: 325 mg Ferrous Sulfate (Ferrous Sulfate) 325 mg PO BIDMEALS [facility] Last Admin: 01/28/17 09:05 Dose: 325 mg Ferrous Sulfate (Ferrous Sulfate) 325 mg PO BID@0700,1800 [facility] Last Admin: 02/05/17 08:08 Dose: 325 mg Fluconazole (Diflucan) 150 mg PO ONETIME@1800 ONE Stop: 01/11/17 18:01 Last Admin: 01/11/17 17:00 Dose: 150 mg Fluconazole (Diflucan) 150 mg PO DAILY@1800 [facility] Stop: 01/13/17 18:01 Last Admin: 01/13/17 17:28 Dose: 150 mg Furosemide (Lasix) 40 mg PO DAILY [facility] Last Admin: 01/30/17 08:36 Dose: 40 mg Lactated Ringer's (Ringers, Lactated) 1,000 mls @ 50 mls/hr IV ASDIRECTED [facility] Stop: 01/24/17 23:59 Lactated Ringer's (Ringers, Lactated) Confirm Administered Dose 1,000 mls @ as directed .ROUTE .STK-MED ONE Stop: 01/24/17 07:58 Last Admin: 01/24/17 10:53 Dose: Not Given Ketamine HCl (Ketalar) Confirm Administered Dose 500 mg .ROUTE .STK-MED ONE Stop: 01/24/17 07:57 Last Admin: 01/24/17 10:52 Dose: Not Given Ketamine HCl (Ketalar) 25 mg IV .STK-MED ONE Stop: 01/24/17 08:56 Lactulose (Cephulac) 20 gm PO BID [facility] Last Admin: 01/10/17 09:29 Dose: 20 gm Methylprednisolone Sodium Succinate (Solu-Medrol) 80 mg IVPUSH BID [facility] Last Admin: 01/19/17 09:57 Dose: Not Given Methylprednisolone Sodium Succinate (Solu-Medrol) 80 mg IVPUSH DAILY [facility] Last Admin: 01/21/17 08:46 Dose: 80 mg Methylprednisolone Sodium Succinate (Solu-Medrol) 40 mg IVPUSH DAILY [facility] Last Admin: 01/23/17 10:43 Dose: Not Given Metoclopramide HCl (Reglan) 10 mg PO TID PRN PRN Reason: Nausea Last Admin: 01/10/17 06:21 Dose: 10 mg Midazolam HCl (Versed 1 Mg/Ml) Confirm Administered Dose 4 mg .ROUTE .STK-MED ONE Stop: 01/24/17 07:39 Last Admin: 01/24/17 10:51 Dose: Not Given Midazolam HCl (Versed 1 Mg/Ml) Confirm Administered Dose 4 mg .ROUTE .STK-MED ONE Stop: 01/24/17 07:57 Last Admin: 01/24/17 10:52 Dose: Not Given Midazolam HCl (Versed 1 Mg/Ml) 6 mg IV .STK-MED ONE Stop: 01/24/17 08:56 Mometasone Furoate/Formoterol Fumar (Dulera 100-5 Mcg) 2 puff IH BID [facility] Multi-Ingred Cream/Lotion/Oil/Oint (Kmed) 0 ml TOP BID [facility] Last Admin: 01/26/17 08:59 Dose: Not Given Ondansetron HCl (Zofran) 4 mg IVPUSH Q4H PRN PRN Reason: Nausea/Vomiting Potassium Chloride (Klor-Con M20) 20 meq PO DAILY [facility] Last Admin: 01/11/17 12:24 Dose: 20 meq Potassium Chloride (Klor-Con M20) 20 meq PO DAILY@1200 [facility] Last Admin: 01/29/17 11:59 Dose: 20 meq Propofol (Diprivan 20 Ml) Confirm Administered Dose 200 mg .ROUTE .STK-MED ONE Stop: 01/24/17 07:58 Last Admin: 01/24/17 10:52 Dose: Not Given Sodium Chloride (Syrex Flush) 5 ml FLUSH Q8HR PRN PRN Reason: Keep Vein Open Tramadol HCl (Ultram) 100 mg PO DAILY PRN PRN Reason: Insomnia Last Admin: 01/04/17 21:21 Dose: 100 mg Tramadol HCl (Ultram) 50 mg PO ONETIME ONE Stop: 01/16/17 18:56 Last Admin: 01/16/17 19:08 Dose: 50 mg Tramadol HCl (Ultram) 50 mg PO ONETIME PRN PRN Reason: Pain Stop: 01/16/17 23:59 Trazodone HCl (Trazodone) 50 mg PO BEDTIME [facility] Last Admin: 01/30/17 20:24 Dose: 50 mg - Exam Quality Assessment: No: supplemental oxygen General: alert, oriented, cooperative, no acute distress Neck: supple Lungs: Clear to auscultation, Normal respiratory effort Cardiovascular: Regular Rate, Regular Rhythm Abdomen: soft, no tenderness Extremities: edema (Slight edema only lower extremities) Neurological: no new focal deficit Psy/Mental Status: alert, normal affect, normal mood - Problem List Review Problem List Initiated/Reviewed/Updated: Yes - My Orders Last 24 Hours: My Active Orders 02/06/17 09:00 Ascorbic Acid [Vitamin C] 500 mg PO DAILY Ferr[facility] Sulfate 325 mg PO DAILY - Plan Plan:: IMPRESSION/PLAN Generalized weakness and debilitation--tremendous strides not quite optimal but ready for discharge. Post acute hypoxic respiratory failure requiring extended mechanical ventilation -extubated and tracheostomy site-doing well Chronic hypoxia with secondary O2 therapy-doing much better-not requiring oxygen therapy at this time Post severe pneumonia with empyema-marked improvement. Remove doxycycline Gastroparesis; much improved. No longer has G-tube. Diastolic heart failure history-clinically well controlled History of urinary tract infection, asymptomatic. Atrial fibrillation history-clinically well controlled Anemia-iron deficiency-gradually improving. Continue with iron at least another 6 weeks, hemoglobin today now normal. Important to keep iron for at least 6 more weeks then she can discontinue this. Bilateral pleural effusion-clinically doing much better Status post thoracoscopy-decortication right middle lobe and right lower lobe, drainage of empyema and placement of chest tubes x2 subsequently removed-history Overall plan. Patient will be discharged from [facility] rehabilitation/ swing bed tomorrow. Physical therapy notes reviewed carefully; demonstrates improved endurance with stair negotiation, he is now completing full flight of stairs. Demonstrates good safety with transfers and gait with FWW. When she goes home she will receive home health services. Pharmacy consultation to review medications.
[2017-02-05] MEDS: Docusate Sodium 100 MG Cap PO SCH ×2 (12:02→21:00)
[2017-02-05] MEDS: B.Bifidum/B.Longum/L.Acidophilus/L.Rhamnosus (Probiotic) Cap PO SCH (12:02)
[2017-02-05] MEDS: Cholecalciferol (Vitamin D3) 1,000 Unit Tab PO SCH (17:33)
[2017-02-06] MEDS: Omeprazole 20 MG Cap.CR PO SCH (06:53)
[2017-02-06 06:56] VITALS: BP 152/85
[2017-02-06] MEDS ORDERED: Ascorbic Acid 500 MG Tab PO SCH (09:00)
[2017-02-06] MEDS ORDERED: Ferrous Sulfate 325 MG Tab PO SCH (09:00)
[2017-02-06] MEDS: Umeclidinium Bromide 62.5 MCG 30 Puff Inhaler IH SCH (09:17)
[2017-02-06] MEDS: Aspirin 81 MG Tab.EC PO SCH (09:18)
[2017-02-06] MEDS: Amiodarone 200 MG Tab PO SCH (09:18)
[2017-02-06] MEDS: Formoterol/Mometasone 100-5 MCG 8.8 GM Inhaler IH SCH (09:19)
[2017-02-06] MEDS: Acetaminophen 325 MG Tab PO PRN (09:26)
--- NOTE | 2017-02-07 10:56 | DISCH ---
The patient was admitted in swing bed on 01/04/2017 and discharged from swing bed on 02/06/2017. FINAL DIAGNOSES: 1. Generalized weakness and debilitation that has much improved. She will receive home health. 2. Post acute hypoxic respiratory failure, requiring extended mechanical ventilation. She has been extubated and her trach site has closed. She is doing very well. 3. Chronic hypoxia with secondary oxygen therapy, doing much better and not requiring oxygen. 4. Post severe pneumonia with empyema, markedly improved. We removed her doxycycline. 5. Gastroparesis, much improved. No longer has G-tube. 6. Diastolic heart failure history, clinically doing well. 7. Urinary tract infection that is now resolved. She is asymptomatic. 8. History of atrial fibrillation. 9. Iron-deficiency anemia, gradually improving. She will continue with iron for about another 6 weeks. 10.Bilateral pleural effusions, clinically doing much better. 11.Status post thoracostomy with decortication of her right middle lobe and right lower lobes with drainage of empyema and placement of chest tubes, those are all removed. She is doing well. BRIEF HISTORY: This 71-year-old female was transferred back to us in a swing bed status. Almost spending about eight weeks' stay in [place], she developed initially influenza A, followed by bilateral bacterial pneumonias. She also went into ARDS. She required tracheostomy and respiratory management for almost a month. She was subsequently transferred to an LTAC where due to deconditioning, she spent quite a bit of time there, so she was transferred to us for more rehabilitation and management of her G-tube. HOSPITAL COURSE: The patient's hospital course went quite well. She did have a G-tube when she was brought here, that was subsequently removed. We did provide some dietary nutrition through continuous feeds at night. She did start developing some fullness, did want eat her meals in the morning. We subsequently slowed those down. A Nutritional consult was placed. We eventually did remove that. Dr. Berkowitz did remove her G-tube successfully in the operating room, and she was able to take adequate amount of calorie. She was on a calorie count at one time. We did give her Lasix for some fluid overload, mainly in her lower extremities, those were all discontinued. She never became hemodynamically unstable. We continued with iron. We monitored her labs and her hemoglobin. Her hemoglobin was up, very near or at normal on discharge. She did have some on and off recurrent nausea that was well under control with Zofran. We stopped all chronic enteral feedings. She did well on her diet. Her constipation was controlled. She was treated for urinary tract infection. Also for her pneumonia, we had her on Cipro and also doxycycline at one time, those were all been discontinued. We had to replace her potassium level that was normal on discharge. She continued with rehabilitation through physical therapy for strength building. She did very well with these. SHLOMO hoses were placed for DVT prophylaxis. For her breathing, we did continue with Pulmicort nebulizers and DuoNebs. Those were eventually weaned down, however, she did continue on aggressive incentive spirometer. PHYSICAL EXAM ON DISCHARGE: VITAL SIGNS: Weight is 186 pounds, temperature normal, heart rate 70, blood pressure 152/85, and O2 sats 94% on room air, and respiratory rate 18. DISPOSITION: The patient will be discharged home. She will be discharged to nursing Physical Therapy and Occupational therapy to help with developing an in- home therapy program and in-home safety assessment and instruction due to patient still using a walker for decreased strength and endurance, however, that is improving. She is homebound due to no driving and limited or decreased strength and endurance due to severe muscle weakness, however, that is improving. She, however, does still experience some shortness of breath with some minimal activities and contributing to her unsteady gait. The patient will follow up with Pulmonology and Cardiology, and she will follow up with [facility] with primary care provider thereafter. She is to report any worsening weakness, fever, worsening unsteady gait, nausea, vomiting, or any increase in shortness of breath. MEDICAL DECISION MAKIN minutes was spent on this discharge planning and process, working with pharmacy and home health services. DISCHARGE MEDICATIONS: Include: 1. Amiodarone 200 mg daily. 2. Acetaminophen 650 mg p.o. q.4 hours p.r.n. 3. Aspirin 81 mg daily. 4. Cholecalciferol 4000 units daily. 5. Docusate sodium 100 mg p.o. b.i.d. 6. Ferrous sulfate 325 mg p.o. b.i.d. x1 more month. 7. Omeprazole 20 mg b.i.d. before meals. 8. Zofran tablets 4 mg q.6 p.r.n. 9. Respiratory medications, Dulera and Incruse Ellipta. /[id number]/MODL MTDD
== END 2017-02-06 11:30 | disposition home health service (06) | DRG 981 ==
LOC: KA.MS 12:54
PROVIDERS: ADMIT Nurse Practitioner Family; ATTEND Family Medicine
PROC: 0DP63UZ Removal of Feeding Device from Stomach, Percutaneous Approach (ICD-10-PCS; principal; 2017-01-24)
DX: M62.81 Muscle weakness (generalized) (principal); J18.9 Pneumonia, unspecified organism; I50.30 Unspecified diastolic (congestive) heart failure; N39.0 Urinary tract infection, site not specified; I48.91 Unspecified atrial fibrillation; K21.9 Gastro-esophageal reflux disease without esophagitis; G47.00 Insomnia, unspecified; Z87.01 Personal history of pneumonia (recurrent); R11.0 Nausea; K31.84 Gastroparesis; Z93.1 Gastrostomy status; K59.00 Constipation, unspecified; Z87.440 Personal history of urinary (tract) infections; D50.9 Iron deficiency anemia, unspecified; E87.6 Hypokalemia; D64.9 Anemia, unspecified; R60.9 Edema, unspecified; Z79.899 Other long term (current) drug therapy; R06.02 Shortness of breath
CPT/HCPCS: 36415; 71020; 80048; 80053; 81001; 82607; 82728; 82746; 83540; 84466; 85025; 85045; 87070; 87077; 87186; 87205; 94640; 97110-GP; 97112-GP; 97163-GP; 97530-GP; A9270-GY; G0283-GP; J2250; J2930; J7120

== ENCOUNTER 2019-01-06 09:56 | Day surgery (SDC) | payer MEDICARE, OTHER ==
[2019-01-06] MEDS ORDERED: Sodium Chloride 0.9% 10 ML Syringe FLUSH PRN (10:00)
[2019-01-06] MEDS ORDERED: Lactated Ringers 1,000 ML IV SCH (10:00)
[2019-01-06] MEDS ORDERED: Propofol 200 MG/20 ML SDV ONE ×2 (10:12→10:46)
[2019-01-06] MEDS ORDERED: Midazolam 1 MG/ML 2 ML SDV ONE (10:12)
[2019-01-06] MEDS ORDERED: Midazolam 1 MG/ML 2 ML SDV IV ONE (11:28)
[2019-01-06] MEDS ORDERED: Propofol 200 MG/20 ML SDV IV ONE (11:28)
--- NOTE | 2019-01-06 11:32 | PCM.PN ---
- General Info Date of Service: 01/06/19 - Review of Systems Systems Review Comment:: 73-year-old female referred by Rabia Ash for colonoscopy. This patient has a history of colon polyps in the past. She is medically stable to proceed today. Her recent history and physical is reviewed and no significant changes are noted. I discussed the proposed colonoscopy with the patient. Risks such as but not limited to bleeding and GI injury reviewed. She appears to understand and agrees to proceed. - Patient Data Vitals - Most Recent: Last Vital Signs Temp 98.7 F 01/06/19 10:00 Pulse 80 01/06/19 10:00 Resp 16 01/06/19 10:00 BP 147/64 H 01/06/19 10:00 Pulse Ox 96 01/06/19 10:00 Weight - Most Recent: 83.007 kg Med Orders - Current: Current Medications Lactated Ringer's (Ringers, Lactated) 1,000 mls @ 50 mls/hr IV ASDIRECTED LIZZY Last Admin: 01/06/19 10:44 Dose: 50 mls/hr Sodium Chloride (Saline Flush) 10 ml FLUSH Q8HR PRN PRN Reason: keep vein open Discontinued Medications Midazolam HCl (Versed 1 Mg/Ml) Confirm Administered Dose 2 mg .ROUTE .STK-MED ONE Stop: 01/06/19 10:13 Propofol (Diprivan 20 Ml) Confirm Administered Dose 200 mg .ROUTE .STK-MED ONE Stop: 01/06/19 10:13 - Problem List Review Problem List Initiated/Reviewed/Updated: Yes - My Orders Last 24 Hours: My Active Orders 01/06/19 10:00 Peripheral IV Care [RC] . DIRECTED Vital Signs [RC] PER UNIT ROUTINE Lactated Ringers [Ringers, Lactated] 1,000 ml IV ASDIRECTED Sodium Chloride 0.9% [Saline Flush] 10 ml FLUSH Q8HR PRN Peripheral IV Insertion Adult [OM.PC] Routine 01/06/19 10:30 Patient to Empty Bladder [RC] ASDIRECTED 01/06/19 11:30 Verify Patient Consent Obtain [RC] ASDIRECTED 01/06/19 Breakfast Nothing Per Oral Diet [DIET] - Assessment Assessment:: History of colon polyps - Plan Plan:: Colonoscopy
--- NOTE | 2019-01-06 12:13 | PCM.OPNOTE ---
- General Post-Op/Procedure Note Date of Surgery/Procedure: 01/06/19 Operative Procedure(s): Colonoscopy Findings: Moderate Sigmoid Diverticulosis Colon otherwise normal Pre Op Diagnosis: History of Colon Polyps Post-Op Diagnosis: Sigmoid Diverticulosis Anesthesia Technique: MAC Primary Surgeon: lBadimir Monaco Pathology: none Output, Urine Amount: 0 EBL in mLs: 0 Complications: None Condition: Good
[2019-01-06 13:46] VITALS: BP 125/66
--- NOTE | 2019-01-06 14:35 | OR ---
DATE OF SURGERY: 01/06/2019 SURGEON: Bladimir Monaco MD PREOPERATIVE DIAGNOSIS: History of colon polyps. POSTOPERATIVE DIAGNOSIS: Sigmoid diverticulosis. OPERATION PERFORMED: Colonoscopy. INDICATIONS FOR SURGERY: This 73-year-old female has a history of colon polyps. It has been over 5 years since her last colonoscopy and she was referred for this exam. FINDINGS: No polyps were seen on today's exam. The patient does have a moderate degree of sigmoid diverticulosis with some angulation, making it somewhat difficult to negotiate the sigmoid region. The colon also was tortuous with significant looping. DESCRIPTION OF PROCEDURE: The patient was taken to the operating room. She was given intravenous sedation, and with her in the left lateral decubitus position, digital rectal exam was performed showing no rectal masses. The Olympus colonoscope was inserted into the rectum. Retroflexed examination of the rectal canal was performed. The scope was then carefully advanced under direct visualization through the entire length of the colon until the cecum was visualized. Advancing the scope to the point where the cecum could be visualized did require hand pressure and placing the patient on her back, but eventually the cecum is able to be satisfactorily viewed and the ileocecal valve is examined. The scope was then slowly withdrawn, sequentially re-examining the colonic segments until the entire colon and rectum had been fully examined. The scope was removed, and the patient was taken from the operating room in satisfactory condition. ESTIMATED BLOOD LOSS: Zero. COMPLICATIONS: None. PROGNOSIS: Good. /[id number]/MODL
== END 2019-01-06 13:35 | disposition home or self-care (01) ==
LOC: KA.SDS 09:56
PROVIDERS: ATTEND Surgery
DX: Z12.11 Encounter for screening for malignant neoplasm of colon (principal); K57.30 Diverticulosis of large intestine without perforation or abscess without bleeding; J45.909 Unspecified asthma, uncomplicated; E66.9 Obesity, unspecified; E78.00 Pure hypercholesterolemia, unspecified; M19.91 Primary osteoarthritis, unspecified site; G25.81 Restless legs syndrome; Z86.010 Personal history of colon polyps; Z79.899 Other long term (current) drug therapy; Z88.1 Allergy status to other antibiotic agents
CPT/HCPCS: J2250; J2405; J2704; J7120

== ENCOUNTER 2025-01-10 12:18 | Emergency (ER) | payer MEDICARE, OTHER ==
[2025-01-10 12:41] VITALS: BP 180/73; PULSE 80
[2025-01-10] MEDS: Acetaminophen 500 MG Tab PO ONE (13:14)
== END 2025-01-10 13:57 | disposition home or self-care (01) ==
LOC: KA.ED 12:18
DX: S00.11XA Contusion of right eyelid and periocular area, initial encounter (principal); I48.91 Unspecified atrial fibrillation; J45.909 Unspecified asthma, uncomplicated; Z90.49 Acquired absence of other specified parts of digestive tract; Z79.899 Other long term (current) drug therapy; Z79.51 Long term (current) use of inhaled steroids; Z88.1 Allergy status to other antibiotic agents; Z88.8 Allergy status to other drugs, medicaments and biological substances; W01.0XXA Fall on same level from slipping, tripping and stumbling without subsequent striking against object, initial encounter; Y93.89 Activity, other specified
CPT/HCPCS: 70450; 70486; 99283; A9270-GY